=== PATIENT | female | born 1950 | race Caucasian/White ===

== ENCOUNTER 2023-08-24 11:14 | Outpatient (AMB) | payer MEDICARE, SELFPAY ==
--- NOTE | 2023-08-24 11:18 | MHC.PC.OV ---
Vital Signs 08/24/23 11:19 Height 5 ft 1.61 in Weight 133 lb 0.8 oz BMI 24.6 BP 136/72 Blood Pressure Location Lt brachial Position Sitting Pulse 68 Pulse Source Pulse Oximeter Pulse Oximetry (%) 96 Oxygen Delivery Method Room Air Intake Visit Reasons: [employer], blood tests, including sugar Intake Note: Patient is a new patient here to establish care Waiter/Waitress Captain Required: No Allergies No Known Allergies Allergy (Verified 08/24/23 12:11) Medication List - Last Reconciled 08/24/23 by Kvng Hampton MD No Known Home Meds Tobacco use date assessed: 08/24/23 Fall risk assessment: No Falls in past year Last assessed Fall Risk: 08/24/23 Dental Screening Dental Screen Date: 08/24/23 Did you have a dental visit in the last 12 months?: Yes Did you have a dental problem in the last 6 months where you did not have access to dental care?: No Was dental information given to patient?: Patient has dentist HPI [employer], blood tests, including sugar HPI Details Patient comes in today to establish care - is a new patient to the practice Her previous PCP was Dr. Chacho Mason Patient states that she feels okay but admits that she has not seen a doctor in at least 2 to 3 years now She denies any headaches or dizziness Denies any chest pains, no SOB No nausea/vomiting, no abdominal pain No change in bowel habits noted She denies any acute urinary symptoms Admits that it has been a while since she had her mammogram and bone density done - last mammogram on record was back in 2015 There is no record of a bone density in her file here at [facility] Her pap smear and gynecology exam were also both done back in 2016 Patient states that she has never had a screening colonoscopy done (by choice) but recalls getting some alternative form of testing done - thinks it may be a Cologuard but she is not sure [facility] Medical History (Updated 08/28/23 @ 02:07 by Kvng Hampton MD) Depression Smoker Pure hypercholesterolemia Surgical History (Updated 08/28/23 @ 02:04 by Kvng Hampton MD) No pertinent past surgical history Family History (Updated 08/28/23 @ 02:04 by Kvng Hampton MD) Other Family history non-contributory Social History (Updated 08/28/23 @ 02:05 by Kvng Hampton MD) Housing: Condominium Patient Tobacco Use Status: Current everyday Tobacco user Cigarette Packs Per Day: 1 service: No Current occupational status: retired Cognitive needs: No Hearing needs: No Vision needs: No Questionnaire PHQ-9 Over the last 2 weeks, how often have you been bothered by any of the following problems? 1. Little interest or pleasure in doing things: not at all 2. Feeling down, depressed, or hopeless: not at all 3. Trouble falling or staying asleep, or sleeping too much: not at all 4. Feeling tired or having little energy: not at all 5. Poor appetite or overeating: not at all 6. Feeling bad about yourself - or that you are a failure or have let yourself or your family down: not at all 7. Trouble concentrating on things, such as reading the newspaper or watching television: not at all 8. Moving or speaking so slowly that other people could have noticed. Or the opposite - being so fidgety or restless that you have been moving around a lot more than usual: not at all 9. Thoughts that you would be better off or of hurting yourself in some way: not at all Total score: 0 Depression Screening Interpretation: Negative Depression Screening Done: Yes 48416 - PHQ-9 Billing: Yes Source: Developed by Drs. Errol Spicer, Manuela Dunlap, Barry Urbina and colleagues, with an educational mick from [employer]. Thrive Questionnaire Date Thrive assessed: 08/24/23 I am a: Patient What is your living situation today?: I have a steady place to live Within the past 12 months, did the food you bought not last and you didn't have the money to get more?: Never true Within the past 12 months, did you worry whether your food would run out before you got money to buy more?: Never true Do you have trouble paying for medicines?: No Do you have trouble getting transportation to medical appointments?: No Do you have trouble paying your heating and electricity bill?: No Do you have trouble taking care of your child, family member or friend?: No Do you have trouble with day-to-day activities such as bathing, preparing meals, shopping, managing finances, etc.?: No Are you currently unemployed and looking for a job?: No Are you interested in more education?: No Please select the resources that you would like help with: None Currently or been in a relationship where the following occur: no concerns reported THRIVE Score: 0 AUDIT C Alcohol Use Questionnaire (AUDIT-C) 1. How often do you have a drink containing alcohol?: 2-4 times a month 2. How many drinks containing alcohol do you have on a typical day when you are drinking?: 1 or 2 3. How often do you have six or more drinks on one occasion?: Never Total Score: 2 Score Reviewed/Action Taken: Yes JORGE-7 AMB Questionnaire JORGE-7 Date JORGE - 7 assessed: 08/24/23 Feeling nervous, anxious, or on edge: 0 = Not at all Not being able to stop or control worryin = Not at all Worrying too much about different things: 0 = Not at all Trouble relaxin = Not at all Being so restless that it is hard to sit still: 0 = Not at all Becoming easily annoyed or irritable: 0 = Not at all Feeling afraid as if something awful might happen: 0 = Not at all Total JORGE-7 score (0-4 normal; 5-9 mild; 10-14 moderate; 15-21 severe): 0 Source: Developed by Drs. Errol Spicer, Manuela Dunlap, Barry Urbina and colleagues, with an educational mick from [employer]. JORGE-7 Assessment Billing JORGE-7 Assessment Tool: JORGE-7 Assessment 98016 Review of Systems Const Denies chills, Denies fatigue, Denies fever(s), Denies headache(s) and Denies malaise Eyes Denies blurry vision, Denies change in vision, Denies irritation and Denies itchy eyes ENT Denies dysphagia, Denies dizziness, Denies otalgia, Denies headache(s), Denies nasal congestion, Denies neck pain, Denies odynophagia, Denies sinus pain and Denies sore throat Card Denies chest pain, Denies rapid heart rate, Denies irregular heart rhythm, Denies palpitations and Denies dyspnea Resp Denies chest congestion, Denies cough, Denies dyspnea and Denies wheezing GI Denies abdominal pain, Denies bloating, Denies constipation, Denies dysphagia, Denies heartburn, Denies diarrhea, Denies nausea, Denies odynophagia and Denies vomiting Denies hematuria, Denies urinary frequency, Denies dysuria, Denies urinary incontinence and Denies urinary urgency Musc Denies back pain, Denies arthralgias, Denies joint swelling, Denies muscle weakness and Denies neck pain Skin/Breast Denies breast pain, Denies breast mass, Denies change in pigmentation, Denies lesions, Denies rash and Denies unusual bruising Neuro Denies dizziness, Denies headache(s) and Denies paresthesias Psych Denies anxiety and Denies depression Endo Denies fatigue and Denies palpitations Warren/Lymph Denies easy bruising Aller/Immun Denies itchy eyes and Denies wheezing Physical exam (Primary Care) Vital Signs: Last Vital Signs Pulse 68 08/24/23 11:19 BP 136/72 08/24/23 11:19 Pulse Ox 96 08/24/23 11:19 Oxygen Delivery Method Room Air 08/24/23 11:19 BMI result Body Mass Index 24.6 Tobacco/Smoking Status: Tobacco use Status Tobacco use date assessed 08/24/23 08/24/23 11:20 Patient Tobacco Use Status Current everyday Tobacco 08/24/23 11:50 Depression Screening Interpretation: Negative Thrive Assessment: Date of Thrive Assessment Date Thrive assessed 08/24/23 08/24/23 11:20 Currently or been in a relationship where the following occur: no concerns reported Const General: no acute distress, alert and awake Orientation/consciousness: patient oriented x3 HENMT Head: Yes normocephalic and Yes atraumatic Ears: external ears normal, TM's normal bilaterally and EAC's normal General nose exam: No nasal discharge present Face and sinus: Yes normal facial exam and Yes sinuses nontender Teeth and gingiva: dentition normal Throat: Yes posterior oropharynx normal and Yes tonsils normal (no TP congestion) Eyes Eyelids: Yes eyelids normal Conjunctivae: conjunctivae normal Pupils: Equal, round and reactive pupils present EOM: EOMs intact bilaterally Neck Neck: Yes no lymphadenopathy and Yes supple Thyroid: Thyroid normal Resp Auscultation: clear to auscultation bilaterally, no rales and no wheezes Cardio Rate: regular rate Rhythm: regular rhythm Heart sounds: no murmurs GI Palpation (GI): Soft to palpation, nontender and No hepatosplenomegaly present Auscultation: normal bowel sounds General: Yes no CVA tenderness Back/Spine/Pelvis Back: no CVA tenderness Thoracic/Lumbar Spine: thoracic and lumbar spine normal to inspection Skin Lesions: no lesions Rashes: no rashes Neuro General: patient oriented x3, moves all extremities, no focal motor deficits and CN's II-XI intact bilaterally Cranial nerves: Yes Equal, round and reactive pupils present Cognition (Neuro): normal cognition Gait exam (Neuro): Normal gait present Extrem General: Yes no clubbing, cyanosis or edema Assessment and Plan Assessment & Plan (1) Annual physical exam: Code(s): Z00.00 - Encounter for general adult medical examination without abnormal findings Plan: Check labs (2) Pure hypercholesterolemia: Code(s): E78.00 - Pure hypercholesterolemia, unspecified Plan: Patient has a history of high cholesterol in the past although it has been about 10 years or more since she's had her labs done or checked and states that she has never taken or been prescribed Rx for her cholesterol Reinforced low cholesterol diet Will check her fasting lipids and labs TARYN for follow up (3) Smoker: Code(s): F17.200 - Nicotine dependence, unspecified, uncomplicated Plan: Counseled on smoking cessation - patient states that she currently has no plans to quit smoking Have discussed with her that with her smoking history, she should at least consider going for a low dose CT lung scanning for lung cancer screening (4) Breast cancer screening by mammogram: Code(s): Z12.31 - Encounter for screening mammogram for malignant neoplasm of breast Plan: Will send her for a screening mammogram - patient states that it has been years since she's had a screening mammogram Cee (5) Osteoporosis screening: Code(s): Z13.820 - Encounter for screening for osteoporosis Plan: She does not recall ever getting a bone density screening done - will send her for DEXA scan (this will be her index screen) (6) Colon cancer screening: Code(s): Z12.11 - Encounter for screening for malignant neoplasm of colon Plan: She has never had a colonoscopy done (by choice) and continues to decline referral for a colonoscopy Recalls having some alternative screening done but it has been years since She has agreed to get Cologuard testing done - ordered Plan Follow up in 6 months Orders: Orders TSH reflex Free T4 08/24/23 E78.00 - Pure hypercholesterolemia, unspecified Vitamin D 25-OH Total 08/24/23 E55.9 - Vitamin D deficiency, unspecified Vitamin B12 and Folate 08/24/23 E53.8 - Deficiency of other specified B group vitamins MM tomosynthesis screening BI 08/24/23 Z12.31 - Encounter for screening mammogram for malignant neoplasm of breast Hemoglobin A1c 08/24/23 E11.9 - Type 2 diabetes mellitus without complications Complete Blood Count Auto Diff 08/24/23 D64.9 - Anemia, unspecified Comprehensive Clio. Panel Fast 08/24/23 E78.00 - Pure hypercholesterolemia, unspecified Lipid Panel 08/24/23 E78.00 - Pure hypercholesterolemia, unspecified UA CC w/rflx Micro + Cult 08/24/23 R30.0 - Dysuria XR DEXA axial skeleton 08/24/23 Z78.0 - Asymptomatic menopausal state Referrals Cologuard Test Z12.11 - Encounter for screening for malignant neoplasm of colon, Z12.12 - Encounter for screening for malignant neoplasm of rectum Review Declined Pap Smear: 08/24/23 Patient declined Colonoscopy: 08/24/23 Coding Level of Care Code New Pt Prev Care >65yr (64187) Diagnoses Annual physical exam Z00.00 Pure hypercholesterolemia E78.00 Smoker F17.200 Breast cancer screening by mammogram Z12.31 Osteoporosis screening Z13.820 Colon cancer screening Z12.11 Additional Codes JORGE-7 Assessment Billing - JORGE-7 Assessment Tool: JORGE-7 Assessment 08440 ([id number])
[2023-08-24 11:19] VITALS: BP 136/72; PULSE 68; O2SAT 96; BMI 24.6
== END 2023-08-24 12:34 | disposition home or self-care (01) ==
PROVIDERS: PCP Internal Medicine; Visit Provider Physician Assistant
DX: Z00.00 Encounter for general adult medical examination without abnormal findings (principal); E78.00 Pure hypercholesterolemia, unspecified; F17.200 Nicotine dependence, unspecified, uncomplicated; Z12.31 Encounter for screening mammogram for malignant neoplasm of breast; Z13.820 Encounter for screening for osteoporosis; Z12.11 Encounter for screening for malignant neoplasm of colon
CPT/HCPCS: 99387

== ENCOUNTER 2023-09-05 09:55 | Outpatient (REF) | payer MEDICARE, SELFPAY ==
[2023-09-05 10:10] LABS: MANUAL DIFF FLAG NO
[2023-09-05 11:06] LABS: Appearance Urine Cloudy; Color Urine Yellow; Glucose Urine UA Negative (Negative); Leukocyte Esterase Urine Moderate (2+) (Negative); Nitrite Urine Negative (Negative); UMIC TRIGGER UACC YES; Urine Blood Negative (Negative); Urine Ketones Negative (Negative); Urine Protein Negative (Neg-Trace)
[2023-09-05 11:13] LABS: Basophils Absolute Auto 0.1 X10*3/uL (0.0-0.2); Eosinophils Absolute Auto 0.7 X10*3/uL (0.0-0.4); Eosinophils Percent Auto 6.2 % (0-4); Hematocrit 46.4 % (37.0-47.0); Hemoglobin 15.7 g/dl (12.0-16.0); Imm Gran Abs Auto 0.08 X10*3/uL (0.00-0.03); Imm Gran Pct Auto 0.7 % (0.0-0.4); Lymphocytes Absolute Auto 2.8 X10*3/uL (1.2-4.9); Lymphocytes Percent Auto 25.9 % (20-40); Mean Corpuscular HGB Conc 33.8 g/dl (31.0-35.0); Mean Corpuscular Hemoglobin 30.5 pg (27.0-33.0); Mean Corpuscular Volume 90.3 fL (80.0-98.0); Mean Platelet Volume 9.9 fL (9.4-12.3); Monocytes Absolute Auto 0.7 X10*3/uL (0.1-1.2); Monocytes Percent Auto 6.2 % (2-11); Neutrophils Absolute Auto 6.5 x10*3/uL (2.0-8.3); Platelet Count 254 X10*3/uL (160-400); Red Blood Count 5.14 X10*6/uL (4.20-5.50); Red Cell Distribution Width 11.9 % (11.0-16.0); White Blood Count 10.8 X10*3/uL (4.8-10.8)
[2023-09-05 11:28] LABS: Bacteria Urine 2+ (None Seen); Hyaline Casts Urine 0-2 /LPF (0-2); RBC Urine 0-2 /HPF (0-2); Squamous Epithelial Cell Urine >20 /HPF (0-2); UACC Culture Trigger YES; WBC Urine 21-50 /HPF (0-5)
[2023-09-05 11:58] LABS: Alanine Aminotransferase 17 U/L (0-31); Albumin Level 4.4 g/dL (3.5-5.0); Alkaline Phosphatase 131 U/L (39-117); Anion Gap 15 (12-20); Aspartate Amino Transferase 15 U/L (5-31); Bilirubin Total 0.5 mg/dL (0.0-1.0); Blood Urea Nitrogen 21 mg/dL (9-16); Calcium 10.2 mg/dL (8.4-10.2); Carbon Dioxide 24 mmol/L (22-29); Chloride 108 mmol/L (96-108); Cholesterol 219 mg/dL (<200); Estimated Glomerular Filt Rate > 60; Glucose Fasting 89 mg/dL (60-99); HDL Cholesterol 39 mg/dL (>40); LDL Cholesterol Calculated 146 mg/dL (<100); Potassium 4.9 mmol/L (3.3-5.1); Sodium 142 mmol/L (135-145); TSH reflex Free T4 0.86 uIU/mL (0.32-4.0); Triglycerides 173 mg/dL (<150); Vitamin D 25-OH Total 45.2 ng/mL (>30)
[2023-09-05 12:00] LABS: Estimated Average Glucose 100 mg/dL; Hemoglobin A1c % 5.1 % (<6.0)
[2023-09-05 12:17] LABS: Vitamin B12 511 pg/mL (200-900)
== END 2023-09-05 09:56 | disposition home or self-care (01) ==
LOC: HO.LAB 09:55
PROVIDERS: PCP Internal Medicine; Visit Provider Internal Medicine
DX: E78.00 Pure hypercholesterolemia, unspecified (principal); R30.0 Dysuria; E55.9 Vitamin D deficiency, unspecified; E53.8 Deficiency of other specified B group vitamins; E11.9 Type 2 diabetes mellitus without complications; D64.9 Anemia, unspecified
CPT/HCPCS: 36415; 80053; 80061; 81001; 81003; 82306; 82607; 82746; 83036; 84443; 85025; 87086

== ENCOUNTER 2023-09-27 09:54 | Outpatient (REF) | payer MEDICARE, SELFPAY ==
--- NOTE | ~2023-09-27 | MM_ITS ---
EXAMINATION: BONE DENSITOMETRY CLINICAL INDICATION: Menopause. COMPARISON: This is the patient's baseline examination. TECHNIQUE: Using a [employer] DXA System (software version: 13.1) manufactured by [employer], dual-energy x-ray absorptiometry was performed of the lumbar spine and left hip. The images are of good technical quality. Summary results are attached. FINDINGS: LEFT FEMUR, NECK: BMD 0.602 g/cm2, Z-score -1.2, T-score -3.1, osteoporosis. LEFT FEMUR, TOTAL: BMD 0.615 g/cm2, Z-score -1.4, T-score -3.1, osteoporosis. AP SPINE L1-L4: BMD 0.855 g/cm2, Z-score -0.8, T-score -2.7, osteoporosis. IDENTIFIED RISK FACTORS: Menopause, height loss, tobacco use (current smoker). HISTORY OF FRACTURE: None listed. MEDICATIONS: Multivitamin, vitamin D. MM/XR DEXA axial skeleton IMPRESSION: 1. DIAGNOSIS: Osteoporosis based on the lowest T-score value of -3.1 in the femur neck and total femur applying World Health Organization criteria. 2. 10-YEAR FRACTURE RISK PREDICTION, FRAX: According to the guidelines, FRAX calculation should only be performed on patients in the osteopenia bone density category. Therefore, FRAX was not performed on this patient. 3. Treatment Recommendations: NOF guidelines recommend consideration for treatment in postmenopausal women and men age 50 and older presenting with the following: -A hip or vertebral (clinical or morphometric) fracture. -T-score less than or equal to -2.5 at the femoral neck or spine after appropriate evaluation to exclude secondary causes. -Low bone mass at the hip or spine and a 10-year fracture probability by FRAX of greater than or equal to 3% for hip fracture or greater than or equal to 20% for major osteoporotic fracture based on the [place] adapted WHO algorithm. 4. Other Recommendations: All treatment decisions require clinical judgment and consideration of individual patient factors, including patient preferences, comorbidities, previous drug use, risk factors not captured in the FRAX model (e.g. frailty, falls, vitamin D deficiency, increased bone turnover, interval significant decline in bone density) and possible under or overestimation of fracture risk by FRAX. Additional medical evaluation for secondary cause of low bone mineral density may be appropriate. FUTURE SCAN RECOMMENDATION: People with diagnosed cases of osteoporosis or at high risk for fracture should have regular bone mineral density tests. For patients eligible for Medicare, routine testing is allowed once every 2 years. The testing frequency can be increased to one year for patients who have rapidly progressing disease, those who are receiving or discontinuing medical therapy to restore bone mass, or have additional risk factors.
--- NOTE | ~2023-09-27 | MM_ITS ---
EXAMINATION: MM SCREENING DIGITAL BREAST TOMOSYNTHESIS, BILATERAL CLINICAL INFORMATION: Screening. Asymptomatic. COMPARISON: Mammography: There are no prior mammograms for comparison. TECHNIQUE: Digital breast tomosynthesis is performed in both the craniocaudal and mediolateral oblique views along with computer-aided detection (CAD). Synthesized 2D images are generated from the tomosynthesis. FINDINGS: There are scattered areas of fibroglandular density (ACR BI-RADS breast composition Category b). There are grouped calcifications at the lower inner quadrant of the right breast at a middle depth. Some of these may be vascular. Additional mammographic imaging with magnification is advised. In the left breast, there are no significant masses, abnormal calcifications, or other abnormalities. MM/MM tomosynthesis screening BI IMPRESSION: Right breast calcifications warrant additional mammographic imaging with magnification. No mammographic signs of malignancy left breast. ASSESSMENT: BI-RADS BI-RADS 0 - Incomplete: Needs additional Imaging. RECOMMENDATION: Additional views of the right breast. Radiology department staff will contact the patient for additional imaging. Additional Imaging required This examination should not preclude the clinical evaluation of a suspicious palpable abnormality. This patient's information was entered into a reminder system with a target due date for their next mammogram.
== END 2023-09-27 09:55 | disposition home or self-care (01) ==
LOC: HO.MAMMO 09:54
PROVIDERS: PCP Internal Medicine; Visit Provider Internal Medicine
DX: Z12.31 Encounter for screening mammogram for malignant neoplasm of breast (principal); Z13.820 Encounter for screening for osteoporosis; Z78.0 Asymptomatic menopausal state
CPT/HCPCS: 77063; 77067; 77080

== ENCOUNTER → 2023-09-27 10:30 | Outpatient (BNV) | payer MEDICARE, SELFPAY | PROVIDERS: PCP Internal Medicine; Visit Provider Radiology Diagnostic Radiology | DX: Z12.31 Encounter for screening mammogram for malignant neoplasm of breast (principal) | CPT/HCPCS: 77063; 77067 ==

== ENCOUNTER 2023-12-05 14:14 | Outpatient (REF) | payer MEDICARE, SELFPAY ==
--- NOTE | ~2023-12-05 | MM_ITS ---
EXAMINATION: MM DIAGNOSTIC DIGITAL MAMMOGRAPHY, RIGHT CLINICAL INFORMATION: Diagnostic for calcifications lower inner quadrant right breast mid to anterior one third seen on screening exam. Patient states last mammogram was approximately 2010. COMPARISON: Mammography: As above, no recent priors available. TECHNIQUE: Digital mammography is performed in the following views: 2-D spot magnification right CC and LM views. FINDINGS: There are scattered areas of fibroglandular density (ACR BI-RADS breast composition Category b). In the lower inner quadrant of the right breast, mid to anterior one third, there is a group of somewhat pleomorphic calcifications, with both linear, punctate, and branching forms, suspicious in morphology. These do not definitively represent vascular calcifications and may lie within a ductal distribution. Stereotactic biopsy recommended. MM/MM added views RT IMPRESSION: -Suspicious calcifications in the lower inner quadrant right breast as described, for which stereotactic guided biopsy is recommended for further characterization. -Findings and recommendations discussed with the patient in detail, who appears to understand. ASSESSMENT: BI-RADS BI-RADS 4 - Suspicious finding RECOMMENDATION: Biopsy recommended
== END 2023-12-05 14:15 | disposition home or self-care (01) ==
LOC: HO.MAMMO 14:14
PROVIDERS: Visit Provider Internal Medicine
DX: R92.1 Mammographic calcification found on diagnostic imaging of breast (principal)
CPT/HCPCS: 77065

== ENCOUNTER → 2023-12-05 15:00 | Outpatient (BNV) | payer MEDICARE, SELFPAY | PROVIDERS: Visit Provider Radiology Diagnostic Radiology | DX: R92.1 Mammographic calcification found on diagnostic imaging of breast (principal) | CPT/HCPCS: 77065; G0279 ==

== ENCOUNTER 2023-12-06 14:07 | Outpatient (AMB) | payer MEDICARE, SELFPAY ==
--- NOTE | 2023-12-06 14:27 | MHC.OFFVIS ---
Vital Signs 12/06/23 14:28 Height 5 ft 2 in Weight 132 lb 4.438 oz BMI 24.2 BP 138/86 Blood Pressure Location Rt brachial Position Sitting Pulse 76 Pulse Source Pulse Oximeter Pulse Oximetry (%) 96 Oxygen Delivery Method Room Air Intake Visit Reasons: [place] s/p scrn. +cologuard. Intake Note: Kelsey presents in office today for a scheduled colo s/p consult. CC: Pt had recently received a + Cologuard result. Pt has previous hx of hemorrhoids and believes that with recent GI related issues and hemorrhoids, that it could possibly have caused a false positive. Pt denies any new concerns or sx at this time. Pt has no prior hx of colo. Director Labor Standards Required: No Allergies nickel Allergy (Mild, Verified 12/06/23 14:35) Rash HPI HPI [place] s/p scrn. +cologuard.: Details: 73 year old? female here today for pre colonoscopy screening.? Patient was sent to us by her PCP.? This is her first colonoscopy screening.? Patient had Cologuard in August and was positive. Patient denies any melena, hematochezia, unintentional weight loss or ribbon like stools. Patient does report that she has hemorrhoids. Just before patient had send a Cologuard she had GI virus and had diarrhea. However patient states that when she sent the stool it was firm. Patient denies any gastrointestinal symptoms in the past or at present.? Denies any personal or family history of gastrointestinal disease, colon polyps, or CRC.? Denies history of difficulty with sedation or anesthesia in the past.? Negative for history of sleep apnea.? Denies any history of cardiac, renal, pulmonary, or hepatic disease.?? No history of infectious? diseases like hepatitis A, B, C, HIV or tuberculosis.? Patient is not on any anticoagulation [facility] Medical History (Updated 12/06/23 @ 15:36 by German Richards MD) Breast calcification, right Depression Smoker Pure hypercholesterolemia Surgical History No pertinent past surgical history Family History Other Family history non-contributory Social History Housing: Condominium Patient Tobacco Use Status: Current everyday Tobacco user Cigarette Packs Per Day: 1 service: No Current occupational status: retired Cognitive needs: No Hearing needs: No Vision needs: No Review of Systems Const Denies weight gain and Denies weight loss ENT Reports no additional complaints, Denies dysphagia and Denies odynophagia Card Reports no additional complaints Resp Reports no additional complaints GI Denies abdominal pain, Denies belching, Denies melena, Denies bloating, Denies change in bowel habits, Denies dysphagia, Denies excessive flatus, Denies dyspepsia, Denies heartburn, Denies diarrhea, Denies loose stools, Denies nausea, Denies odynophagia and Denies vomiting Musc Reports no additional complaints Neuro Reports no additional complaints Psych Reports no additional complaints Endo Reports no additional complaints Physical Exam Vital Signs: Last Vital Signs Pulse 76 12/06/23 14:28 BP 138/86 12/06/23 14:28 Pulse Ox 96 12/06/23 14:28 Oxygen Delivery Method Room Air 12/06/23 14:28 BMI result Body Mass Index 24.2 Const General: healthy appearing, no acute distress and well developed Nutritional Appearance: well nourished Orientation/consciousness: patient oriented x3 Resp Effort & Inspection: normal respiratory effort, able to speak in complete sentences, no tracheal deviation and symmetric chest movement Auscultation: clear to auscultation bilaterally Cardio Rate: regular rate GI Inspection: Yes normal to inspection and No distended Palpation (GI): Soft to palpation, not firm, nontender and No hepatosplenomegaly present Auscultation: normal bowel sounds General: Yes no CVA tenderness Back/Spine/Pelvis Back: no CVA tenderness Skin General skin exam: elasticity normal, turgor normal and dry skin Neuro General: patient oriented x3 Psych Appearance: grossly normal Mental Status: mental status grossly normal Assessment & Plan Assessment & Plan (1) Positive colorectal cancer screening using Cologuard test: Code(s): R19.5 - Other fecal abnormalities Category: Medical Plan Patient denies any GI, cardiac or respiratory symptoms.? Positive Cologuard in May Denies any issues with anesthesia in the past.? Denies any history of sleep apnea.? No history infectious diseases in the past or present.? Not on any anticoagulation therapy.? No family or personal history of colon cancer or polyps.? Patient denies melena, hematochezia, unintentional weight loss or ribbon like stools.? Discussed at length the pre-procedure,? prep, diet & medications as well as what to expect prior, during and after the procedure.?? Stressed the importance of good bowel prep.? Recommended the use of Vaseline or Calmoseptine OTC & baby wipes with bowel movements to promote comfort.? ?Patient verbalizes understanding and agrees to plan of care.? She was given the opportunity to ask questions and all questions answered.? We will see her after the procedure.? Medications: New bisacodyl (Dulcolax (bisacodyl)) take 4 tabs at noon the day before your colonoscopy 20 mg (4 x 5 mg) PO ONCE 4 tabs 0RF 1 day Z12.11 - Encounter for screening for malignant neoplasm of colon polyethylene glycol 3350 (Miralax) As directed by gastroenterology department at [facility] 238 grams PO ONCE 238 grams 0RF Z12.11 - Encounter for screening for malignant neoplasm of colon Coding Level of Care Code New Pt Level 3 (44402) Diagnoses Positive colorectal cancer screening using Cologuard test R19.5 Time Spent (min) 40 Comment 30 minutes spent with patient and additional 10 minutes spent reviewing her records
[2023-12-06 14:28] VITALS: BP 138/86; PULSE 76; O2SAT 96; BMI 24.2
== END 2023-12-06 15:14 | disposition home or self-care (01) ==
PROVIDERS: PCP Internal Medicine; Visit Provider Nurse Practitioner Family
DX: R19.5 Other fecal abnormalities (principal)
CPT/HCPCS: 99203

== ENCOUNTER → 2023-12-06 14:07 | Outpatient (BNVA) | payer MEDICARE, SELFPAY | PROVIDERS: PCP Internal Medicine; Visit Provider Nurse Practitioner Family | DX: Z01.818 Encounter for other preprocedural examination (principal); R19.5 Other fecal abnormalities; Z71.2 Person consulting for explanation of examination or test findings | CPT/HCPCS: 99202 ==

== ENCOUNTER 2023-12-07 13:25 | Outpatient (AMB) | payer MEDICARE, SELFPAY ==
--- NOTE | 2023-12-07 13:28 | MHC.OFFVIS ---
Vital Signs 12/07/23 13:29 Height 5 ft 2 in Weight 132 lb BMI 24.1 Intake Visit Reasons: Stereo Bx RT breast LIQ calcs Intake Note: This patient presents for Stereo Bx for right breast LIQ calcs. Pt c/o; reports no breast complaints. 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 She had undergone screening mammography last month and this showed suspicious calcification in the lower inner quadrant of the right breast. A stereotactic biopsy has been recommended She says she has not felt any lump on the right breast. Her menarche was at age of 13. Her 1st was at age of 32. She has 3 pregnancies. She had menopause in her early 50s. He denies any family history of breast cancer. She admits to being heavy smoker. [facility] Medical History Breast calcification, right Depression Smoker Pure hypercholesterolemia Surgical History No pertinent past surgical history Family History Other Family history non-contributory Social History Housing: Condominium Patient Tobacco Use Status: Current everyday Tobacco user Cigarette Packs Per Day: 1 service: No Current occupational status: retired Cognitive needs: No Hearing needs: No Vision needs: No Female Reproductive History Menstrual Total pregnancies: 1 Review of Systems Const Denies chills and Denies fever(s) Card Denies chest pain, Denies dyspnea and Denies dyspnea on exertion Resp Denies cough, Denies dyspnea and Denies dyspnea on exertion GI Denies hematochezia and Denies change in bowel habits Denies hematuria Musc Denies back pain and Denies limited range of motion Neuro Denies focal weakness and Denies convulsions Psych Denies depression and Denies mood swings Physical Exam Vital Signs: BMI result Body Mass Index 24.1 Const General: comfortable and no acute distress Orientation/consciousness: patient oriented x3 Neck Neck: Yes no lymphadenopathy Chest Other: No palpable breast masses, no nipple or skin changes, no axillary lymphadenopathy Resp Auscultation: clear to auscultation bilaterally Cardio Rhythm: regular rhythm GI Palpation (GI): Soft to palpation, nontender and no guarding Neuro General: patient oriented x3 Assessment & Plan Assessment & Plan (1) Breast calcification, right: Code(s): R92.1 - Mammographic calcification found on diagnostic imaging of breast Category: Medical Plan: She has a suspicious calcifications seen on her screening mammogram on the right breast. She was recommended to undergo stereotactic biopsy. I explained to her the technique of this procedure I will see her in the office to discuss the path report thereafter. She understands the plan well and is comfortable with this. Orders: Orders MM stereotactic biopsy RT 12/06/23 R92.1 - Mammographic calcification found on diagnostic imaging of breast Coding Level of Care Code New Pt Level 3 (47055) Diagnoses Breast calcification, right R92.1
[2023-12-07 13:29] VITALS: BMI 24.1
== END 2023-12-07 13:59 | disposition home or self-care (01) ==
PROVIDERS: PCP Internal Medicine; Visit Provider Surgery
DX: R92.1 Mammographic calcification found on diagnostic imaging of breast (principal)
CPT/HCPCS: 99203

== ENCOUNTER → 2023-12-07 13:25 | Outpatient (BNVA) | payer MEDICARE, SELFPAY | PROVIDERS: PCP Internal Medicine; Visit Provider Surgery | DX: R92.1 Mammographic calcification found on diagnostic imaging of breast (principal) | CPT/HCPCS: 99202 ==

== ENCOUNTER 2023-12-11 07:56 | Outpatient (REF) | payer MEDICARE, SELFPAY ==
--- NOTE | ~2023-12-11 | MM_ITS ---
EXAMINATION: STEREOTACTIC TOMOSYNTHESIS-GUIDED VACUUM-ASSISTED BREAST BIOPSY, RIGHT CLINICAL INFORMATION: Suspicious calcifications right breast lower inner quadrant mid to anterior one third, recommended for stereotactic biopsy. COMPARISON: 12/05/2023, 04/28/2023. TECHNIQUE/PROCEDURE: Informed consent was obtained from the patient after discussion of the benefits, risks, and alternatives to biopsy today. Patient appeared to understand. Gave opportunity for questions. Patient signed consent form. Upon initial district captain imaging of the calcifications in the right breast, it was noted the calcifications conformed to associated vessels, demonstrated tram tracking not previously seen, and are consistent with vascular calcifications. Because of this discovery, the biopsy was canceled. Instead, we will follow these calcifications in 6 months time with magnification views, to assure normal progression of vascular calcifications. MM/MM stereotactic biopsy RT IMPRESSION: 1. Stereotactic biopsy right breast canceled due to district captain imaging evidence of calcifications being consistent with vascular origin. Discussion of findings was held with the patient. We will instead follow these calcifications in 6 months time with right breast diagnostic magnification views. BI-RADS 3: Probably benign.
== END 2023-12-11 07:57 | disposition home or self-care (01) ==
LOC: HO.MAMMO 07:56
PROVIDERS: PCP Internal Medicine; Visit Provider Surgery
DX: R92.1 Mammographic calcification found on diagnostic imaging of breast (principal); Z53.8 Procedure and treatment not carried out for other reasons
CPT/HCPCS: 19081

== ENCOUNTER → 2023-12-11 08:00 | Outpatient (BNV) | payer MEDICARE, SELFPAY | PROVIDERS: PCP Internal Medicine; Visit Provider Radiology Diagnostic Radiology | DX: R92.1 Mammographic calcification found on diagnostic imaging of breast (principal) | CPT/HCPCS: 19081 ==

== ENCOUNTER 2024-02-29 09:50 | Outpatient (AMB) | payer MEDICARE, SELFPAY ==
[2024-02-29 09:52] VITALS: BP 118/68; PULSE 78; O2SAT 97; BMI 23.8
--- NOTE | 2024-02-29 09:52 | MHC.PC.OV ---
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 Accompanied by: Self / Same As Patient Allergies nickel Allergy (Mild, Verified 02/29/24 10:31) Rash Medication List - Last Reconciled 02/29/24 by Kvng Hampton MD bisacodyl (Dulcolax (bisacodyl)) 20 mg (4 x 5 mg) PO ONCE 1 day polyethylene glycol 3350 (Miralax) 238 grams PO ONCE Tobacco use date assessed: 02/29/24 Fall risk assessment: 1 Fall in past year Last assessed Fall Risk: 02/29/24 Dental Screening Dental Screen Date: 02/29/24 Did you have a dental visit in the last 12 months?: Yes Did you have a dental problem in the last 6 months where you did not have access to dental care?: No Was dental information given to patient?: Patient has dentist HPI 6 Month F/U HPI Details Patient comes in today for her follow up visit States that she feels okay She denies any headaches or dizziness Denies any chest pains, no increased SOB No nausea/vomiting, no abdominal pain No change in bowel habits noted She was seen by GI recently for her positive Cologuard test and is now scheduled for her colonoscopy in May 2024 although she is considering having that rescheduled to spring as she does not want to risk having to come out in the winter when there is a snow storm She adds that she had some injury to her left lower leg about 25 years ago but she never had her leg checked out after her injury States that since her injury, she'd had a prominent hard/firm tendon-like lesion sticking out on her left lower leg on the side Relates that she has mentioned that to her doctor at the time but was just told to watch it and call again if it starts to bother her States that the lesion does not hurt and it does not seem to be affecting her leg or ankle or her mobility - she appears to have full ROM of her left ankle and states that she has no leg pain or ankle pain when she is walking or moving about She would like to know how her labs and bone density done a few months ago came out [facility] Medical History (Updated 02/29/24 @ 11:12 by Kvng Hampton MD) Mixed hyperlipidemia Osteoporosis Breast calcification, right Depression Smoker Pure hypercholesterolemia Surgical History No pertinent past surgical history Family History Other Family history non-contributory Social [facility] Patient Tobacco Use Status: Current everyday Tobacco user Cigarette Packs Per Day: 1 e-Cigarette/Vaping Use: Never Used service: No Current occupational status: retired Cognitive needs: No Hearing needs: No Vision needs: No Questionnaire PHQ-9 Over the last 2 weeks, how often have you been bothered by any of the following problems? 1. Little interest or pleasure in doing things: not at all 2. Feeling down, depressed, or hopeless: not at all 3. Trouble falling or staying asleep, or sleeping too much: not at all 4. Feeling tired or having little energy: not at all 5. Poor appetite or overeating: not at all 6. Feeling bad about yourself - or that you are a failure or have let yourself or your family down: not at all 7. Trouble concentrating on things, such as reading the newspaper or watching television: not at all 8. Moving or speaking so slowly that other people could have noticed. Or the opposite - being so fidgety or restless that you have been moving around a lot more than usual: not at all 9. Thoughts that you would be better off or of hurting yourself in some way: not at all Total score: 0 Depression Screening Interpretation: Negative Depression Screening Done: Yes 03616 - PHQ-9 Billing: Yes Source: Developed by Drs. Errol Spicer, Manuela Dunlap, Barry Urbina and colleagues, with an educational mick from [employer]. Thrive Questionnaire Date Thrive assessed: 02/29/24 I am a: Patient What is your living situation today?: I have a steady place to live Within the past 12 months, did the food you bought not last and you didn't have the money to get more?: Never true Within the past 12 months, did you worry whether your food would run out before you got money to buy more?: Never true Do you have trouble paying for medicines?: No Do you have trouble getting transportation to medical appointments?: No Do you have trouble paying your heating and electricity bill?: No Do you have trouble taking care of your child, family member or friend?: No Do you have trouble with day-to-day activities such as bathing, preparing meals, shopping, managing finances, etc.?: No Are you currently unemployed and looking for a job?: No Are you interested in more education?: No Please select the resources that you would like help with: None Currently or been in a relationship where the following occur: No concerns reported THRIVE Score: 0 AUDIT C Alcohol Use Questionnaire (AUDIT-C) 1. How often do you have a drink containing alcohol?: 2-4 times a month 2. How many drinks containing alcohol do you have on a typical day when you are drinking?: 1 or 2 3. How often do you have six or more drinks on one occasion?: Never Total Score: 2 Score Reviewed/Action Taken: Yes JORGE-7 AMB Questionnaire JORGE-7 Date JORGE - 7 assessed: 02/29/24 Feeling nervous, anxious, or on edge: 0 = Not at all Not being able to stop or control worryin = Not at all Worrying too much about different things: 0 = Not at all Trouble relaxin = Not at all Being so restless that it is hard to sit still: 0 = Not at all Becoming easily annoyed or irritable: 0 = Not at all Feeling afraid as if something awful might happen: 0 = Not at all Total JORGE-7 score (0-4 normal; 5-9 mild; 10-14 moderate; 15-21 severe): 0 Source: Developed by Drs. Errol Spicer, Manuela Dunlap, Barry Urbina and colleagues, with an educational mick from [employer]. JORGE-7 Assessment Billing JORGE-7 Assessment Tool: JORGE-7 Assessment 48577 Review of Systems Const Denies chills, Denies fatigue, Denies fever(s) and Denies headache(s) ENT Denies dysphagia, Denies dizziness, Denies otalgia, Denies headache(s), Denies neck pain, Denies odynophagia and Denies sore throat Card Denies chest pain, Denies irregular heart rhythm, Denies palpitations and Denies dyspnea Resp Denies chest congestion, Denies cough and Denies dyspnea GI Denies abdominal pain, Denies constipation, Denies dysphagia, Denies heartburn, Denies diarrhea, Denies nausea, Denies odynophagia and Denies vomiting Denies difficulty voiding, Denies nocturia, Denies dysuria and Denies urinary urgency Musc Denies back pain, Denies arthralgias and Denies neck pain Skin/Breast Denies rash Neuro Denies dizziness and Denies headache(s) Endo Denies fatigue and Denies palpitations Physical exam (Primary Care) Vital Signs: Last Vital Signs Pulse 78 02/29/24 09:52 BP 118/68 02/29/24 09:52 Pulse Ox 97 02/29/24 09:52 Oxygen Delivery Method Room Air 02/29/24 09:52 BMI result Body Mass Index 23.8 Tobacco/Smoking Status: Tobacco use Status Tobacco use date assessed 02/29/24 02/29/24 09:57 Patient Tobacco Use Status Current everyday Tobacco 02/29/24 09:57 e-Cigarette/Vaping Use Never Used 02/29/24 09:57 PHQ-9: PHQ-9 Score PHQ-9: Total score 0 02/29/24 09:57 Depression Screening Interpretation: Negative Thrive Assessment: Date of Thrive Assessment Date Thrive assessed 02/29/24 02/29/24 09:57 Currently or been in a relationship where the following occur: No concerns reported Const General: no acute distress and alert HENMT Ears: TM's normal bilaterally and EAC's normal Throat: Yes posterior oropharynx normal and Yes tonsils normal (no TP congestion) Neck Neck: Yes no lymphadenopathy and Yes supple Thyroid: Thyroid normal Resp Auscultation: clear to auscultation bilaterally, no rales and no wheezes Cardio Rate: regular rate Rhythm: regular rhythm Heart sounds: no murmurs GI Palpation (GI): Soft to palpation and nontender Auscultation: normal bowel sounds General: Yes no CVA tenderness Back/Spine/Pelvis Back: no CVA tenderness Thoracic/Lumbar Spine: No lumbar spinal tenderness Skin Rashes: no rashes Extrem General: Yes no clubbing, cyanosis or edema Office Procedures Flu Questionnaire Does the patient have a severe egg allergy?: No Immunizations Fluarix Triv [id number] (PF) 45 mcg (15 mcg x 3)/0.5 mL IM syringe Performing Provider: Kvng Hampton MD [facility] [place] [facility] Documented (not given) by: CHERYL Cardenas on 02/29/24 09:58 Reason Not Given: Patient Refused Results Reviewed Results Reviewed: Laboratory Tests 09/05/23 09/05/23 10:02 10:08 WBC 10.8 Hgb 15.7 Hct 46.4 Plt Count 254 Sodium 142 Potassium 4.9 Creatinine 0.74 Estimated GFR > 60 Fasting Glucose 89 Hemoglobin A1c % 5.1 Calcium 10.2 AST 15 ALT 17 Triglycerides 173 H Cholesterol 219 H LDL Cholesterol, Calc 146 H HDL Cholesterol 39 L Vitamin B12 511 25-OH Vitamin D Total 45.2 TSH 0.86 Ur Specific Bennet 1.010 Urine Protein Negative Urine Glucose (UA) Negative Urine Blood Negative Urine Nitrite Negative Ur Leukocyte Esterase Moderate (2+) H Coding Level of Care Code Est Pt Level 4 (16927) Diagnoses Mixed hyperlipidemia E78.2 Age-related osteoporosis without current pathological fracture M81.0 Osteoporosis type: age-related Presence of current pathological fracture: without current pathological fracture Injury of left lower extremity, sequela S89.92XS Encounter type: sequela Smoker F17.200 Positive colorectal cancer screening using Cologuard test R19.5 Additional Codes JORGE-7 Assessment Billing - JORGE-7 Assessment Tool: JORGE-7 Assessment 36915 ([id number]) PHQ-9 - 77893 - PHQ-9 Billing: Yes ([id number]) Assessment & Plan Assessment & Plan (1) Mixed hyperlipidemia: Code(s): E78.2 - Mixed hyperlipidemia Category: Medical Plan: Results of her labs done a few months ago reviewed and discussed with patient - she is advised that her cholesterol levels were slightly elevated and higher than recommended on her recent labs She also had high cholesterol levels when they were previously checked back in 2016 Reinforced low cholesterol diet - advised LDL cholesterol goal of at least 130 mg/dl or less if she wishes to avoid having to go on cholesterol-lowering medications Will have her recheck her labs and fasting lipids in 6 months for follow up (2) Osteoporosis: Code(s): M81.0 - Age-related osteoporosis without current pathological fracture Category: Medical Qualifiers: Osteoporosis type: age-related Presence of current pathological fracture: without current pathological fracture Qualified Code(s): M81.0 - Age-related osteoporosis without current pathological fracture Plan: She is advised that her bone density done back in September 2023 revealed (+) osteoporosis, with the lowest T-score value of -3.1 in the femur neck and total femur - this is patient's baseline exam Have recommended that she start taking oral Vitamin D and Calcium supplements daily - Rx for Calcium Citrate + D3 tablets sent to her pharmacy but she is advised that if her insurance will not cover them, she can get these on her own OTC with no Rx needed Will also go ahead and start her on Alendronate 70 mg Q week as instructed - she is advised to call TARYN if she starts experiencing any untoward side effects that she thinks are from her Rx (3) Left leg injury: Comment: (+) prominent tendon on the lateral aspect of the distal left leg - s/p injury to leg years ago Code(s): S89.92XA - Unspecified injury of left lower leg, initial encounter Category: Medical Qualifiers: Encounter type: sequela Qualified Code(s): S89.92XS - Unspecified injury of left lower leg, sequela Plan: She recalls sustaining an injury to her left leg when she was working over 25 years ago but she never did get her injury checked out at the time as it was not really bothering her too much States that she has mentioned this to her doctor at the time but was reportedly advised to just watch it (observation) and call if it starts to bother her States that the lesion does not hurt and it does not seem to be affecting her leg or ankle or her mobility - she appears to have full ROM of her left ankle and states that she has no leg pain or ankle pain when she is walking or moving about As a precaution, will send her for x-rays of the left leg for further evaluation and to assess for any evidence of old injuries and advised that if her x-rays are unremarkable, we do not need to do anything else unless she starts experiencing any symptoms related to this (4) Smoker: Code(s): F17.200 - Nicotine dependence, unspecified, uncomplicated Category: Social Hx Plan: Patient is counseled again on smoking cessation (5) Positive colorectal cancer screening using Cologuard test: Code(s): R19.5 - Other fecal abnormalities Category: Medical Plan: She was seen by GI recently for her positive Cologuard test and is now scheduled for her colonoscopy in May 2024 although she is considering having that rescheduled to sometime in the spring of 2024 as she does not want to risk having to come out in the winter when there is a snow storm She is advised to speak to GI about this Plan To return in 6 months for her next annual physical examination Orders: Orders Complete Blood Count Auto Diff 6 Months D64.9 - Anemia, unspecified, Z00.00 - Encounter for general adult medical examination without abnormal findings Comprehensive [place]. Panel Fast 6 Months E78.00 - Pure hypercholesterolemia, unspecified, Z00.00 - Encounter for general adult medical examination without abnormal findings Vitamin D 25-OH Total 6 Months E55.9 - Vitamin D deficiency, unspecified, Z00.00 - Encounter for general adult medical examination without abnormal findings Influenza [id number] Immunization Today Z23 - Encounter for immunization XR tibia fibula LT 2V Today S89.92XA - Unspecified injury of left lower leg, initial encounter Lipid Panel 6 Months E78.00 - Pure hypercholesterolemia, unspecified, Z00.00 - Encounter for general adult medical examination without abnormal findings TSH reflex Free T4 6 Months E78.00 - Pure hypercholesterolemia, unspecified, Z00.00 - Encounter for general adult medical examination without abnormal findings UA CC w/rflx Micro + Cult 6 Months R30.0 - Dysuria, Z00.00 - Encounter for general adult medical examination without abnormal findings Medications: New alendronate To be taken first thing in the morning on an empty stomach with a full glass of water; patient has to stay upright for at least the next 30 minutes and should not eat or drink anything else for 30 to 60 minutes after taking the medication 70 mg PO QWEEK 3 months 13 tabs 1RF calcium citrate-vitamin D3 250 mg-5 mcg (200 unit) 1 tab PO DAILY 90 days 90 tabs 3RF
== END 2024-02-29 10:40 | disposition home or self-care (01) ==
LOC: HO.HMCH 09:50
PROVIDERS: PCP Internal Medicine; Visit Provider Internal Medicine
DX: E78.2 Mixed hyperlipidemia (principal); M81.0 Age-related osteoporosis without current pathological fracture; S89.92XS Unspecified injury of left lower leg, sequela; F17.200 Nicotine dependence, unspecified, uncomplicated; R19.5 Other fecal abnormalities; Z23 Encounter for immunization

== ENCOUNTER → 2024-02-29 09:50 | Outpatient (BNVA) | payer MEDICARE, SELFPAY | PROVIDERS: PCP Internal Medicine; Visit Provider Internal Medicine | DX: E78.2 Mixed hyperlipidemia (principal); M81.0 Age-related osteoporosis without current pathological fracture; R19.5 Other fecal abnormalities; S89.92XS Unspecified injury of left lower leg, sequela; F17.200 Nicotine dependence, unspecified, uncomplicated; Z71.6 Tobacco abuse counseling | CPT/HCPCS: 90471; 96127; 99212 ==

== ENCOUNTER 2024-08-26 11:40 | Outpatient (REF) | payer MEDICARE, SELFPAY ==
--- NOTE | ~2024-08-26 | MM_ITS ---
EXAMINATION: MM DIAGNOSTIC DIGITAL MAMMOGRAPHY, RIGHT CLINICAL INFORMATION: Patient was called back for right grouped calcifications September 2023 and the stereotactic core needle biopsy is recommended. Patient arrived first irritated core needle biopsy December 11, 2023 was canceled and 6 month follow-up recommended. COMPARISON: Mammography: Pri[facility] on PACS. TECHNIQUE: Digital mammography is performed in craniocaudal and mediolateral oblique views along with computer-aided detection (CAD). FINDINGS: There are scattered areas of fibroglandular density (ACR BI-RADS breast composition Category b). Grouped pleomorphic calcifications in the lower inner quadrant slightly increased from prior. No suspicious masses or other abnormal findings. Results are provided to the patient at time of visit by the technologist. MM/MM diagnostic mammo unilat RT IMPRESSION: Grouped pleomorphic calcifications in the lower inner quadrant slightly increased from prior. Recommend stereotactic core needle biopsy at this time. The findings and recommendations were discussed with the patient the procedure will be scheduled. ASSESSMENT: BI-RADS BI-RADS 4 - Suspicious finding RECOMMENDATION: Biopsy recommended This patient's information was entered into a reminder system with a target due date for their next mammogram. Electronically signed by: Shahida Escudero DO 08/26/2024 01:01 PM EDT
== END 2024-08-26 11:41 | disposition home or self-care (01) ==
LOC: HO.MAMMO 11:40
PROVIDERS: PCP Internal Medicine; Visit Provider Surgery
DX: R92.1 Mammographic calcification found on diagnostic imaging of breast (principal); R92.321 Mammographic fibroglandular density, right breast
CPT/HCPCS: 77062; 77065

== ENCOUNTER → 2024-08-26 12:00 | Outpatient (BNV) | payer MEDICARE, SELFPAY | PROVIDERS: PCP Internal Medicine; Visit Provider Internal Medicine | DX: R92.1 Mammographic calcification found on diagnostic imaging of breast (principal) | CPT/HCPCS: 77065 ==

== ENCOUNTER 2024-08-28 09:58 | Outpatient (REF) | payer MEDICARE, SELFPAY ==
[2024-08-28 11:01] LABS: MANUAL DIFF FLAG NO
[2024-08-28 11:48] LABS: Basophils Absolute Auto 0.1 X10*3/uL (0.0-0.2); Basophils Percent Auto 0.6 % (0-2); Eosinophils Absolute Auto 0.1 X10*3/uL (0.0-0.4); Eosinophils Percent Auto 1.4 % (0-4); Hematocrit 47.1 % (37.0-47.0); Imm Gran Abs Auto 0.06 X10*3/uL (0.00-0.03); Imm Gran Pct Auto 0.6 % (0.0-0.4); Lymphocytes Absolute Auto 2.7 X10*3/uL (1.2-4.9); Lymphocytes Percent Auto 25.7 % (20-40); Mean Corpuscular Hemoglobin 30.1 pg (27.0-33.0); Mean Corpuscular Volume 88.5 fL (80.0-98.0); Mean Platelet Volume 9.7 fL (9.4-12.3); Monocytes Absolute Auto 0.7 X10*3/uL (0.1-1.2); Neutrophils Absolute Auto 6.7 x10*3/uL (2.0-8.3); Neutrophils Percent Auto 64.7 % (45-73); Platelet Count 280 X10*3/uL (160-400); Red Blood Count 5.32 X10*6/uL (4.20-5.50); Red Cell Distribution Width 12.1 % (11.0-16.0); White Blood Count 10.4 X10*3/uL (4.8-10.8)
[2024-08-28 12:07] LABS: Appearance Urine Clear; Color Urine Yellow; Glucose Urine UA Negative (Negative); Leukocyte Esterase Urine Small (1+) (Negative); Nitrite Urine Negative (Negative); PH 5.5 (5.0-9.0); UMIC TRIGGER UACC YES; Urine Blood Negative (Negative); Urine Ketones Negative (Negative); Urine Protein Negative (Neg-Trace)
[2024-08-28 12:35] LABS: Bacteria Urine 2+ (None Seen); Hyaline Casts Urine 0-2 /LPF (0-2); RBC Urine 0-2 /HPF (0-2); UACC Culture Trigger YES; WBC Urine 0-5 /HPF (0-5)
[2024-08-28 12:38] LABS: Alanine Aminotransferase 24 U/L (0-31); Albumin Level 4.6 g/dL (3.5-5.0); Alkaline Phosphatase 77 U/L (39-117); Anion Gap 12 (12-20); Aspartate Amino Transferase 19 U/L (5-31); Bilirubin Total 0.6 mg/dL (0.0-1.0); Blood Urea Nitrogen 18 mg/dL (9-16); Calcium 10.3 mg/dL (8.4-10.2); Carbon Dioxide 23 mmol/L (22-29); Chloride 108 mmol/L (96-108); Cholesterol 247 mg/dL (<200); Estimated Glomerular Filt Rate > 60; Glucose Fasting 95 mg/dL (60-99); HDL Cholesterol 37 mg/dL (>40); LDL Cholesterol Calculated 143 mg/dL (<100); Potassium 3.9 mmol/L (3.3-5.1); Sodium 139 mmol/L (135-145); Total Protein 8.1 g/dL (6.5-8.0); Triglycerides 336 mg/dL (<150)
[2024-08-28 12:43] LABS: Vitamin D 25-OH Total 48.8 ng/mL (>30)
== END 2024-08-28 09:59 | disposition home or self-care (01) ==
LOC: HO.LAB 09:58
PROVIDERS: PCP Internal Medicine; Visit Provider Internal Medicine
DX: E78.2 Mixed hyperlipidemia (principal); M81.0 Age-related osteoporosis without current pathological fracture; S89.92XS Unspecified injury of left lower leg, sequela; R19.5 Other fecal abnormalities; F17.210 Nicotine dependence, cigarettes, uncomplicated; Z00.00 Encounter for general adult medical examination without abnormal findings; D64.9 Anemia, unspecified; E78.00 Pure hypercholesterolemia, unspecified; E55.9 Vitamin D deficiency, unspecified; R30.0 Dysuria
CPT/HCPCS: 36415; 80053; 80061; 81001; 81003; 82306; 84443; 85025; 87086; 96127; 99212

== ENCOUNTER 2024-08-28 09:58 | Outpatient (AMB) | payer MEDICARE, SELFPAY ==
[2024-08-28 10:03] VITALS: BP 116/82; PULSE 90; O2SAT 96; BMI 24.8
--- NOTE | 2024-08-28 10:03 | A.OFFPC_ITS ---
Vital Signs 08/28/24 10:03 Height 5 ft 2 in Weight 135 lb 6 oz BMI 24.8 BP 116/82 Blood Pressure Location Lt brachial Position Sitting Pulse 90 Pulse Source Pulse Oximeter Pulse Oximetry (%) 96 Oxygen Delivery Method Room Air Intake Visit Reasons: 6 month f/u Radiological Equipment Specialist Required: No Accompanied by: Self / Same As Patient Allergies nickel Allergy (Mild, Verified 08/28/24 10:27) Rash Medication List - Last Reconciled 08/28/24 by Kvng Hampton MD alendronate 70 mg PO QWEEK 3 months bisacodyl (Dulcolax (bisacodyl)) 20 mg (4 x 5 mg) PO ONCE 1 day calcium citrate-vitamin D3 250 mg-5 mcg (200 unit) 1 tab PO DAILY 90 days polyethylene glycol 3350 (Miralax) 238 grams PO ONCE Tobacco use date assessed: 08/28/24 Fall risk assessment: No Falls in past year Last assessed Fall Risk: 08/28/24 Dental Screening Dental Screen Date: 08/28/24 Did you have a dental visit in the last 12 months?: Yes Did you have a dental problem in the last 6 months where you did not have access to dental care?: No Was dental information given to patient?: Patient has dentist HPI 6 month f/u HPI Details Patient comes in today for her follow up visit States that she feels okay She denies any headaches or dizziness Denies any chest pains, no SOB No nausea/vomiting, no abdominal pain No change in bowel habits noted She was not able to get her previously ordered labs done prior to her appointment today [facility] Medical History Mixed hyperlipidemia Osteoporosis Breast calcification, right Depression Smoker Pure hypercholesterolemia Surgical History No pertinent past surgical history Family History Other Family history non-contributory Social [facility] Patient Tobacco Use Status: Current everyday Tobacco user Cigarette Packs Per Day: 1 e-Cigarette/Vaping Use: Never Used service: No Current occupational status: retired Cognitive needs: No Hearing needs: No Vision needs: No Questionnaire PHQ-9 Over the last 2 weeks, how often have you been bothered by any of the following problems? 1. Little interest or pleasure in doing things: not at all 2. Feeling down, depressed, or hopeless: not at all 3. Trouble falling or staying asleep, or sleeping too much: several days 4. Feeling tired or having little energy: several days 5. Poor appetite or overeating: not at all 6. Feeling bad about yourself - or that you are a failure or have let yourself or your family down: not at all 7. Trouble concentrating on things, such as reading the newspaper or watching television: not at all 8. Moving or speaking so slowly that other people could have noticed. Or the opposite - being so fidgety or restless that you have been moving around a lot more than usual: not at all 9. Thoughts that you would be better off or of hurting yourself in some way: not at all Total score: 2 Depression Screening Interpretation: Negative Depression Screening Done: Yes 67564 - PHQ-9 Billing: Yes Source: Developed by Drs. Errol Spicer, Manuela Dunlap, Barry Urbina and colleagues, with an educational mick from [employer]. Thrive Questionnaire Date Thrive assessed: 08/28/24 I am a: Patient What is your living situation today?: I have a steady place to live Within the past 12 months, did the food you bought not last and you didn't have the money to get more?: Never true Within the past 12 months, did you worry whether your food would run out before you got money to buy more?: I choose not to answer this question Do you have trouble paying for medicines?: No Do you have trouble getting transportation to medical appointments?: No Do you have trouble paying your heating and electricity bill?: No Do you have trouble taking care of your child, family member or friend?: No Do you have trouble with day-to-day activities such as bathing, preparing meals, shopping, managing finances, etc.?: No Are you currently unemployed and looking for a job?: No Are you interested in more education?: No Please select the resources that you would like help with: None Currently or been in a relationship where the following occur: No concerns reported THRIVE Score: 0 AUDIT C Alcohol Use Questionnaire (AUDIT-C) 1. How often do you have a drink containing alcohol?: Monthly or less 2. How many drinks containing alcohol do you have on a typical day when you are drinking?: 1 or 2 3. How often do you have six or more drinks on one occasion?: Less than monthly Total Score: 2 Score Reviewed/Action Taken: Yes JORGE-7 AMB Questionnaire JORGE-7 Date JORGE - 7 assessed: 08/28/24 Feeling nervous, anxious, or on edge: 0 = Not at all Not being able to stop or control worryin = Not at all Worrying too much about different things: 0 = Not at all Trouble relaxin = Not at all Being so restless that it is hard to sit still: 0 = Not at all Becoming easily annoyed or irritable: 0 = Not at all Feeling afraid as if something awful might happen: 0 = Not at all Total JORGE-7 score (0-4 normal; 5-9 mild; 10-14 moderate; 15-21 severe): 0 Source: Developed by Drs. Errol Spicer, Manuela Dunlap, Barry Urbina and colleagues, with an educational mick from [employer]. Review of Systems Const Denies chills, Denies fatigue, Denies fever(s) and Denies headache(s) ENT Denies dysphagia, Denies dizziness, Denies otalgia, Denies headache(s), Denies neck pain, Denies odynophagia and Denies sore throat Card Denies chest pain, Denies irregular heart rhythm, Denies palpitations and Denies dyspnea Resp Denies chest congestion, Denies cough and Denies dyspnea GI Denies abdominal pain, Denies constipation, Denies dysphagia, Denies heartburn, Denies diarrhea, Denies nausea, Denies odynophagia and Denies vomiting Denies difficulty voiding, Denies nocturia, Denies dysuria and Denies urinary urgency Musc Denies back pain, Denies arthralgias and Denies neck pain Skin/Breast Denies rash Neuro Denies dizziness and Denies headache(s) Endo Denies fatigue and Denies palpitations Physical exam (Primary Care) Vital Signs: Last Vital Signs Pulse 90 08/28/24 10:03 BP 116/82 08/28/24 10:03 Pulse Ox 96 08/28/24 10:03 Oxygen Delivery Method Room Air 08/28/24 10:03 BMI result Body Mass Index 24.8 Tobacco/Smoking Status: Tobacco use Status Tobacco use date assessed 08/28/24 08/28/24 10:04 Patient Tobacco Use Status Current everyday Tobacco 08/28/24 10:04 e-Cigarette/Vaping Use Never Used 08/28/24 10:04 PHQ-9: PHQ-9 Score PHQ-9: Total score 2 08/28/24 10:04 Depression Screening Interpretation: Negative Thrive Assessment: Date of Thrive Assessment Date Thrive assessed 08/28/24 08/28/24 10:09 Currently or been in a relationship where the following occur: No concerns reported Const General: no acute distress and alert HENMT Ears: TM's normal bilaterally and EAC's normal Throat: Yes posterior oropharynx normal and Yes tonsils normal (no TP congestion) Neck Neck: Yes supple and No lymphadenopathy Thyroid: Thyroid normal Resp Auscultation: clear to auscultation bilaterally, no rales and no wheezes Cardio Rate: regular rate Rhythm: regular rhythm Heart sounds: no murmurs GI Palpation (GI): Soft to palpation and nontender Auscultation: normal bowel sounds General: Yes no CVA tenderness Back/Spine/Pelvis Back: no CVA tenderness Thoracic/Lumbar Spine: No lumbar spinal tenderness Skin Rashes: no rashes Extrem General: Yes no clubbing, cyanosis or edema Coding Level of Care Code Est Pt Level 4 (74355) Diagnoses Mixed hyperlipidemia E78.2 Age-related osteoporosis without current pathological fracture M81.0 Osteoporosis type: age-related Presence of current pathological fracture: without current pathological fracture Injury of left lower extremity, sequela S89.92XS Encounter type: sequela Smoker F17.200 Positive colorectal cancer screening using Cologuard test R19.5 Additional Codes PHQ-9 - 72627 - PHQ-9 Billing: Yes ([id number]) Assessment & Plan Assessment & Plan (1) Mixed hyperlipidemia: Code(s): E78.2 - Mixed hyperlipidemia Category: Medical Plan: Patient was not able to get her previously ordered labs done prior to her appointment today and she is encouraged to try to get these done TARYN As she has not yet eaten anything this morning, have advised her to proceed to the lab next door after she checks out from here and get them done today She is reminded that her cholesterol levels were slightly elevated and higher than recommended on her labs from last year She also had high cholesterol levels when they were previously checked back in 2016 Reinforced low cholesterol diet - advised LDL cholesterol goal of at least 130 mg/dl or less if she wishes to avoid having to go on cholesterol-lowering medications Depending on how her labs come out later today, may need to have her get some labs rechecked in 6 months - she is advised that we will reach out to her if any additional labs are needed for her next visit in the fall (2) Osteoporosis: Code(s): M81.0 - Age-related osteoporosis without current pathological fracture Category: Medical Qualifiers: Osteoporosis type: age-related Presence of current pathological fracture: without current pathological fracture Qualified Code(s): M81.0 - Age- related osteoporosis without current pathological fracture Plan: She is also reminded that her bone density done back in September 2023 revealed (+) osteoporosis, with the lowest T-score value of -3.1 in the femur neck and total femur - this is patient's baseline exam Continue Alendronate 70 mg Q week as instructed Continue also oral Vitamin D and Calcium supplements daily - Rx for Calcium Citrate + D3 tablets were previously sent to her pharmacy but she is advised that if her insurance will not cover them, she can get these on her own OTC with no Rx needed (3) Left leg injury: Comment: (+) prominent tendon on the lateral aspect of the distal left leg - s/p injury to leg years ago Code(s): S89.92XA - Unspecified injury of left lower leg, initial encounter Category: Medical Qualifiers: Encounter type: sequela Qualified Code(s): S89.92XS - Unspecified injury of left lower leg, sequela Plan: Patient was previously sent for some precautionary x-rays of her leg but she did not get these done States that her leg has not really been bothering her as much lately and she does not wish to do anything for this now She recalls sustaining an injury to her left leg when she was working over 25 years ago but she never did get her injury checked out at the time as it was not really bothering her too much States that she has mentioned this to her doctor at the time but was reportedly advised to just watch it (observation) and call if it starts to bother her (4) Smoker: Code(s): F17.200 - Nicotine dependence, unspecified, uncomplicated Category: Social Hx Plan: Patient is counseled again on complete smoking cessation (5) Positive colorectal cancer screening using Cologuard test: Code(s): R19.5 - Other fecal abnormalities Category: Medical Plan: She was seen by GI last year (November 2023) for her positive Cologuard test and was originally scheduled for her colonoscopy in May 2024 but she ended up cancelling it and has not been able to get that rescheduled yet Have advised her to try reaching out to GI again and get her colonoscopy scheduled TARYN as it has been almost a year now since she tested positive on her Cologuard Plan Follow up in 6 months
== END 2024-08-28 10:38 | disposition home or self-care (01) ==
LOC: HO.HMCH 09:59
PROVIDERS: PCP Internal Medicine; Visit Provider Internal Medicine
DX: E78.2 Mixed hyperlipidemia (principal); M81.0 Age-related osteoporosis without current pathological fracture; S89.92XS Unspecified injury of left lower leg, sequela; F17.200 Nicotine dependence, unspecified, uncomplicated; R19.5 Other fecal abnormalities

== ENCOUNTER 2024-09-26 09:57 | Outpatient (REF) | payer MEDICARE, SELFPAY ==
--- NOTE | ~2024-09-26 | MM_ITS ---
EXAMINATION: STEREOTACTICALLY-GUIDED RIGHT BREAST BIOPSY CLINICAL INFORMATION: Right calcifications COMPARISON: Priors on PACS. INFORMED CONSENT: After the details of the procedure, as well as the risks (including, but not limited to, bleeding, hematoma formation, and infection), benefits and alternatives (including doing nothing, short-interval follow up, and surgery) to the procedure were explained to the patient in detail and all of her questions were answered, informed written consent was obtained. TECHNIQUE/FINDINGS: A timeout was performed. The lesion intended for biopsy was identified stereotactically and targeted. The skin of the Right breast was then cleansed with sterile solution. Using stereotactic guidance, aseptic technique, and 1% lidocaine with and without epinephrine for local anesthesia, a total of 12 cores were obtained through the targeted area with a 9-gauge vacuum-assisted Eviva core biopsy device from a medial approach. Specimen radiography reveals the targeted calcifications in the sampled tissue. At the completion of tissue sampling, a single top hat-shaped metallic clip was deposited at the biopsy site. Adequate sampling was achieved. The postprocedure 2-view direct digital mammogram reveals satisfactory positioning of the biopsy clip. The patient tolerated the procedure well and, after assuring adequate hemostasis, was discharged in good condition after reviewing postbiopsy breast care instructions. Final pathology results are pending. MM/MM stereotactic biopsy RT IMPRESSION: 1. Uncomplicated stereotactically-guided core biopsy of the right breast. The 2-view direct digital postprocedure mammogram reveals satisfactory positioning of the biopsy clip. 2. Final pathology results are pending. A separate report with final recommendations will be issued once these results are made available. Electronically signed by: Shahida Escudero DO 09/26/2024 12:15 PM EDT
[2024-09-26] MEDS: Lidocaine HCl 1%/Epi 1:100,000 10 ML VIAL 11 ML SUBCUT (11:44)
[2024-09-26] MEDS: Sodium Bicarbonate 8.4% 50 MEQ/50 ML VIAL SUBCUT (11:45)
== END 2024-09-26 09:58 | disposition home or self-care (01) ==
LOC: HO.MAMMO 09:57
PROVIDERS: PCP Internal Medicine; Visit Provider Surgery
DX: D05.11 Intraductal carcinoma in situ of right breast (principal); R92.1 Mammographic calcification found on diagnostic imaging of breast
CPT/HCPCS: 19081; 88305; 88360; A4648; J2004

== ENCOUNTER → 2024-09-26 10:00 | Outpatient (BNV) | payer MEDICARE, SELFPAY | PROVIDERS: PCP Internal Medicine; Visit Provider Internal Medicine | DX: R92.1 Mammographic calcification found on diagnostic imaging of breast (principal) | CPT/HCPCS: 19081; 77065 ==

== ENCOUNTER 2024-10-03 13:32 | Outpatient (AMB) | payer MEDICARE, SELFPAY ==
--- NOTE | 2024-10-03 13:45 | MHC.OFFVIS ---
Vital Signs 10/03/24 13:54 Height 5 ft 2 in Weight 138 lb BMI 25.2 BP 136/78 Blood Pressure Location Rt brachial Position Sitting Pulse 68 Intake Visit Reasons: discuss results Intake Note: Patient here to discuss Breast, right, stereotactic biopsy results. Reports bx site healing well. 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 She had undergone screening mammography last November, month and this showed suspicious calcification in the lower inner quadrant of the right breast. A stereotactic biopsy was scheduled then, but when she came in for the biopsy, the calcifications noted to be consistent with vascular calcifications so the biopsy was canceled. She was asked to follow up in 6 months for repeat imaging She had the repeat imaging done last month in the pleomorphic calcifications appeared to be larger so she underwent tactic biopsy. This showed DCIS so she was referred to me. She says she has not felt any lump on the right breast. Her menarche was at age of 13. Her 1st was at age of 32. She has 3 pregnancies. She had menopause in her early 50s. He denies any family history of breast cancer. She admits to being heavy smoker. She tolerated the biopsy well and denies any hematoma. [facility] Medical History (Updated 10/03/24 @ 14:07 by German Richards MD) DCIS (ductal carcinoma in situ) Mixed hyperlipidemia Osteoporosis Breast calcification, right Depression Smoker Pure hypercholesterolemia Surgical History No pertinent past surgical history Family History Other Family history non-contributory Social History Housing: Condominium Patient Tobacco Use Status: Current everyday Tobacco user Cigarette Packs Per Day: 1 e-Cigarette/Vaping Use: Never Used service: No Current occupational status: retired Cognitive needs: No Hearing needs: No Vision needs: No Review of Systems Const Denies chills and Denies fever(s) Card Denies chest pain, Denies dyspnea and Denies dyspnea on exertion Resp Denies cough, Denies dyspnea and Denies dyspnea on exertion GI Denies hematochezia and Denies change in bowel habits Denies hematuria Musc Denies back pain and Denies limited range of motion Neuro Denies focal weakness and Denies convulsions Psych Denies depression and Denies mood swings Physical Exam Vital Signs: Last Vital Signs Pulse 68 10/03/24 13:54 BP 136/78 10/03/24 13:54 BMI result Body Mass Index 25.2 Const General: comfortable and no acute distress Orientation/consciousness: patient oriented x3 Neck Neck: Yes no lymphadenopathy Chest Other: No palpable masses in the right breast, some mild ecchymosis on the biopsy site Resp Auscultation: clear to auscultation bilaterally Cardio Rhythm: regular rhythm GI Palpation (GI): Soft to palpation, nontender and no guarding Neuro General: patient oriented x3 Assessment & Plan Assessment & Plan (1) DCIS (ductal carcinoma in situ): Code(s): D05.10 - Intraductal carcinoma in situ of unspecified breast Category: Medical Plan: She has an area of grouped calcifications on the right breast at the medial aspect and stereotactic biopsy showed DCIS, high nuclear grade, ERPR negative. I therefore explained to her the need to proceed with surgical treatment. I explained the option of breast conservation therapy with lumpectomy which may need to be followed by radiation. The other option is to do a full mastectomy. Explained the risks, benefits, advantages and disadvantages of both procedures. She understands that if she proceeds with lumpectomy, she may need to undergo radiation for the entire breast She also understands that she may require additional surgeries with lumpectomy down the line or even sentinel node biopsy if any he had grade lesion is found She says she wants to proceed with lumpectomy with the Hologic localizer. She understands the procedure Her daughter was with her during the visit She was also be referred to the oncologist. Orders: Referrals Hematology & Oncology Referral D05.10 - Intraductal carcinoma in situ of unspecified breast Coding Level of Care Code Est Pt Level 4 (47998) Diagnoses DCIS (ductal carcinoma in situ) D05.10
[2024-10-03 13:54] VITALS: BP 136/78; PULSE 68; BMI 25.2
== END 2024-10-03 14:02 | disposition home or self-care (01) ==
LOC: HO.HGS 13:33
PROVIDERS: PCP Internal Medicine; Visit Provider Surgery
DX: D05.10 Intraductal carcinoma in situ of unspecified breast (principal)
CPT/HCPCS: 99214

== ENCOUNTER → 2024-10-03 13:32 | Outpatient (BNVA) | payer MEDICARE, SELFPAY | PROVIDERS: PCP Internal Medicine; Visit Provider Surgery | DX: D05.11 Intraductal carcinoma in situ of right breast (principal) | CPT/HCPCS: 99212 ==

== ENCOUNTER 2024-11-06 07:54 | Outpatient (REF) | payer MEDICARE, SELFPAY ==
--- NOTE | ~2024-11-06 | MM_ITS ---
EXAMINATION: MM MAMMOGRAM GUIDED RFID LOCALIZATION BREAST, RIGHT BREAST CLINICAL INFORMATION: Right breast ductal carcinoma in situ. COMPARISON: Comparison is made with available priors. TECHNIQUE NEEDLE LOC: Proper informed consent is obtained from the patient after discussion of the procedure, potential risks and complications, and alternatives including declining the procedure today. Patient was given an opportunity for questions. The patient appeared to understand. The patient consented to the procedure and signed the consent form. GUIDANCE: Digital mammography. APPROACH: Medial. 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 ANESTHESIA: carbonated lidocaine 1%: 12 mL. LOCALIZATION SYSTEM: [employer] Pro LOCallizer Wire-Free Guidance System with 12g needle applicator. RADIOFREQUENCY TAG: ID # [id number] RF Tag ID confirmed with LOCalizer Guidance System prior to placement. The skin is prepped and local anesthesia administered. The needle is positioned and RFID tag deployed. Final images demonstrate the LOCalizer RF tag to reside adjacent to the marker clip. The patient tolerated the procedure well and had no immediate complications. Dressing placed and home instructions reviewed. MM/MM RF Tag device RT IMPRESSION: -Status post right breast breast RFID localization. Electronically signed by: Shahida Escudero DO 11/06/2024 09:48 AM EDT
[2024-11-06] MEDS: Lidocaine HCl 1 % 20 ML VIAL 12 ML SUBCUT (09:01)
== END 2024-11-06 07:55 | disposition home or self-care (01) ==
LOC: HO.MAMMO 07:54
PROVIDERS: PCP Internal Medicine; Visit Provider Surgery
DX: D05.11 Intraductal carcinoma in situ of right breast (principal)
CPT/HCPCS: 19281; C1819; J2003

== ENCOUNTER → 2024-11-06 08:00 | Outpatient (BNV) | payer MEDICARE, SELFPAY | PROVIDERS: PCP Internal Medicine; Visit Provider Internal Medicine | DX: D05.11 Intraductal carcinoma in situ of right breast (principal) | CPT/HCPCS: 19281; 77065 ==

== ENCOUNTER → 2024-11-07 15:03 | Outpatient (BNV) | payer MEDICARE, SELFPAY | PROVIDERS: PCP Internal Medicine; Visit Provider Internal Medicine Medical Oncology | DX: D05.11 Intraductal carcinoma in situ of right breast (principal) | CPT/HCPCS: 99204 ==

== ENCOUNTER 2024-11-12 07:08 | Day surgery (SDC) | payer MEDICARE, SELFPAY ==
[2024-11-08 12:29] VITALS: BMI 25.2
--- NOTE | 2024-11-11 12:23 | HO.ANESPROP2 ---
Documented by User: Mesha Singh NP 11/11/24 12:24 HPI - Anesthesia Eval Consult details Narrative: 73 yr old female for right Breast Lumpectomy w/ localizer. Smoker PMFSH Active Problems Active Problems: All Active Problems (Updated 11/07/24 @ 15:27 by Mary Daniel MD) DCIS (ductal carcinoma in situ) (Acute) Mixed hyperlipidemia (Acute) Osteoporosis (Acute) Left leg injury (Acute) Breast calcification, right (Acute) Positive colorectal cancer screening using Cologuard test (Acute) Colon cancer screening (Acute) Osteoporosis screening (Acute) Breast cancer screening by mammogram (Acute) Annual physical exam (Acute) Smoker (Acute) Pure hypercholesterolemia (Acute) Past Medical History Medical History DCIS (ductal carcinoma in situ) Mixed hyperlipidemia Osteoporosis Breast calcification, right Depression Smoker Pure hypercholesterolemia Family History Family History Other Family history non-contributory Surgical History Surgical History Hx of tooth extraction Social History Social History Household Members: None Housing: Condominium Are you a primary care assistant to a significant other at home: No Do you presently have visiting nurse or other home services: No Patient Tobacco Use Status: Current everyday Tobacco user Tobacco use type: Cigarette Cigarette Packs Per Day: 1 Smoked in Last 30 Days: Yes e-Cigarette/Vaping Use: Never Used Patient Interested in Nicotine Replacement: No Substance Use Type: Marijuana Substance Use Frequency: Occasionally Have you been hit, kicked, punched, or otherwise hurt by someone within the past year? If so, by whom?: No Are you DNR?: No Advance Directives: No Advance Directives Information Provided: Yes Poor oral hygiene: Yes service: No Current occupational status: retired Cognitive needs: No Hearing needs: No Vision needs: No Meds Allergies Allergy/AdvReac Type Severity Reaction Status Date / Time nickel Allergy Mild Rash Verified 11/12/24 07:45 Home Medications ?Medication ?Instructions ?Recorded ?Confirmed ?Last Taken ?Type calcium 250 mg (as 1 tab PO DAILY 11/08/24 11/08/24 Unknown History citrate)-vitamin D3 5 mcg (200 unit) tablet Exam Height,Weight and Vital Signs: Height 5 ft 2 in Weight 62.596 kg Documented by User: Shelley Zayas MD 11/12/24 09:16 [facility] Past Medical History Medical History DCIS (ductal carcinoma in situ) Mixed hyperlipidemia Osteoporosis Breast calcification, right Depression Smoker Pure hypercholesterolemia Family History Family History Other Family history non-contributory Surgical History Surgical History Hx of tooth extraction History of Problems with Anesthesia: No Social History Social History Household Members: None Housing: Condominium Are you a primary care assistant to a significant other at home: No Do you presently have visiting nurse or other home services: No Patient Tobacco Use Status: Current everyday Tobacco user Tobacco use type: Cigarette Cigarette Packs Per Day: 1 Smoked in Last 30 Days: Yes e-Cigarette/Vaping Use: Never Used Patient Interested in Nicotine Replacement: No Substance Use Type: Marijuana Substance Use Frequency: Occasionally Have you been hit, kicked, punched, or otherwise hurt by someone within the past year? If so, by whom?: No Are you DNR?: No Advance Directives: No Advance Directives Information Provided: Yes Poor oral hygiene: Yes service: No Current occupational status: retired Cognitive needs: No Hearing needs: No Vision needs: No Meds Allergies Allergy/AdvReac Type Severity Reaction Status Date / Time nickel Allergy Mild Rash Verified 11/12/24 07:45 Home Medications ?Medication ?Instructions ?Recorded ?Confirmed ?Last Taken ?Type calcium 250 mg (as 1 tab PO DAILY 11/08/24 11/08/24 Unknown History citrate)-vitamin D3 5 mcg (200 unit) tablet Exam Airway Mallampati Class: II TM Dist: >3cm Neck ROM: Full Partial: Upper and Lower Loose/Missing/Broken Teeth: Yes, Upper and Lower Heart: RRR Lungs: CTA Assessment and Plan Assessment Anesthesia Assessment: Anesthesia Plan Discussed and Chart Reviewed Final Anesthetic Review History of Problems with Anesthesia: No NPO: Yes ASA Class: II Final Preanesthetic Review: Meds/Allgs Chart Reviewed, Consent Obtained/Reviewed and Anes Risks/Benef Reviewed Patient Risk: Low Procedure Risk: Low Anesthetic Plan Anesthetic Plan: GA Disposition: Standard PACU
--- NOTE | ~2024-11-12 | MM_ITS ---
Right single specimen radiograph demonstrates the top hat clip and the LOCalizer tag within the specimen. Electronically signed by: Jose Echeverria MD 11/12/2024 07:35 PM EDT
[2024-11-12 07:15] VITALS: BMI 25.2
[2024-11-12] MEDS: Lactated Ringers 1,000 ML 100 ML IVCONT (07:35)
[2024-11-12 07:43] VITALS: BP 133/83; PULSE 82; RESP 18; TEMP 36.7; O2SAT 96
--- NOTE | 2024-11-12 08:32 | MHC.SHP ---
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, for lumpectomy today; Hologic localizer placed Relevant Family History (Specify if Yes): No Relevant Social History: None Present Medications: see Short Stay Collaborative assessment Medical History: Significant History (Osteoporosis, smoker, hyperlipidemia) Allergies: Allergies Allergy/AdvReac Type Severity Reaction Status Date / Time nickel Allergy Mild Rash Verified 11/12/24 07:45 Review of Systems Sugical H&P ROS: Negative: Constitution, Cardiovascular and Respiratory Exam Surgical H&P Exam: Normal: Heart, Normal: Lungs and Normal: Abdomen Exam Comment: No palpable mass Plan Diagnosis/Plan: Unchanged I have reviewed the history and physical and performed a pertinent physical examination on my patient. No changes have occurred unless specified. Time Spent With Patient Time: Total time managing care of this patient today ____ minutes.
--- NOTE | 2024-11-12 09:53 | P.OP_ITS ---
Operative Note Operative Note Date of Service: 11/12/24 Narrative: Preop diagnosis: DCIS, right breast Postop diagnosis: The same Procedure: Lumpectomy with the Hologic localizer, right breast Surgeon: German Richards MD assistant food service manager: NICKO oYung The patient is a 73 year old female with a recent diagnosis of DCIS. She is here for lumpectomy with the Hologic localizer. She had the RF ID clip placed last week. She understood the technique of the planned procedure as well as the risks, benefits, and alternatives. She was brought to the operating room placed supine under general anesthesia via laryngeal mask airway. The right breast was prepped and draped in the usual sterile fashion. A surgical time-out was done. The patient received cefazolin 2 g IV preoperatively I used the Hologic localizer to identify the area on the skin that was this has through the RF ID clip. This was on the medial aspect of the right breast. I marked this area and infiltrated the skin with lidocaine 1%. I made a transverse incision with a blade 15. This carried down through the full- thickness of the skin and subcutaneous fat with electrocautery. I then used the Hologic localizer to guide our dissection. I used the curved Frances scissors to dissect around the area of the RF ID clip, periodically using the Hologic localizer as we circumferentially dissected around this area I completed the dissection circumferentially. I marked the superior and medial margins with sutures. The Hologic localizer confirmed the presence of the RF ID clip in the specimen. We did a re-ray of the specimen in the room which confirmed the presence of both the RF ID clip in the biopsy clip. We examined the lumpectomy site. We cauterized oozing areas. Once hemostasis was confirmed, we irrigated. We reapposed the deep breast tissue with Polysorb 3-0 simple interrupted sutures. Skin closure was achieved with Polysorb 4-0 subcuticular running stitch I brought down the specimen to the pathologist. I reviewed the specimens with the pathologist. The margins appeared grossly negative. The biopsy cavity was also seen well. Once the margins were deemed to be adequate, we infiltrated the surgical site with Marcaine 0.5% for postop analgesia. Dressings were applied. The procedure was then completed The patient tolerated the procedure well. There were no immediate complications. Initial and final counts of sponges and instruments were correct. Estimated blood loss was was 25 cc. The patient was then extubated without difficulty and transferred to the recovery room with stable vital signs. Breast [place] Node Biopsy Substrate(s) used for sentinel node biopsy in the non-neoadjuvant setting: N/A Substrate(s) used for sentinel node biopsy in the neoadjuvant setting: N/A All colored nodes or non-colored nodes present at the end of a dye filled lymphatic channel were removed, if dye was used as the substrate for localization: N/A All significantly radioactive nodes were removed, if radionuclide was used as the substrate for localization: N/A All palpably suspicious nodes were removed, if present: N/A If clips were placed in pathology-involved nodes, those nodes were identified and removed: N/A Procedure performed with curative intent?: Yes General Surg. - Synoptic Notes Breast [place] Node Biopsy Substrate(s) used for sentinel node biopsy in the non-neoadjuvant setting: N/A Substrate(s) used for sentinel node biopsy in the neoadjuvant setting: N/A All colored nodes or non-colored nodes present at the end of a dye filled lymphatic channel were removed, if dye was used as the substrate for localization: N/A All significantly radioactive nodes were removed, if radionuclide was used as the substrate for localization: N/A All palpably suspicious nodes were removed, if present: N/A If clips were placed in pathology-involved nodes, those nodes were identified and removed: N/A Procedure performed with curative intent?: Yes
[2024-11-12 10:03] VITALS: BP 147/79; PULSE 86; RESP 18; TEMP 36.4; O2SAT 97
[2024-11-12 10:08] VITALS: BP 168/81; PULSE 88; RESP 18; O2SAT 96
[2024-11-12 10:13] VITALS: BP 145/67; PULSE 77; RESP 8; O2SAT 98
[2024-11-12 10:18] VITALS: BP 139/76; PULSE 71; RESP 13; O2SAT 97
[2024-11-12 10:33] VITALS: BP 128/67; PULSE 81; RESP 15; TEMP 36.6; O2SAT 96
== END 2024-11-12 11:06 | disposition home or self-care (01) ==
PROVIDERS: PCP Internal Medicine; Visit Provider Surgery
PROC: (CPT 19301; principal; 2024-11-12 09:00)
DX: D05.11 Intraductal carcinoma in situ of right breast (principal); Z17.1 Estrogen receptor negative status [ER-]; Z17.22 Progesterone receptor negative status; F17.210 Nicotine dependence, cigarettes, uncomplicated; E78.2 Mixed hyperlipidemia; M81.0 Age-related osteoporosis without current pathological fracture; F32.A Depression, unspecified; Z79.899 Other long term (current) drug therapy
CPT/HCPCS: 19301; 88307; 88360; J0131; J0690; J1100; J2003; J2405; J2704; J2795; J3010

== ENCOUNTER → 2024-11-12 07:08 | Outpatient (BNV) | payer MEDICARE, SELFPAY | PROVIDERS: PCP Internal Medicine; Visit Provider Surgery | DX: D05.11 Intraductal carcinoma in situ of right breast (principal) | CPT/HCPCS: 19301 ==

== ENCOUNTER 2024-12-09 14:57 | Outpatient (AMB) | payer MEDICARE, SELFPAY ==
--- NOTE | 2024-12-09 15:01 | MHC.OFFVIS ---
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 Patient c/o: reports incision healed well. Feels hard like a scar. 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 She tolerated the procedure well. She currently denies significant complaints. [facility] Medical History DCIS (ductal carcinoma in situ) Mixed hyperlipidemia Osteoporosis Breast calcification, right Depression Smoker Pure hypercholesterolemia Surgical History History of lumpectomy of right breast (11/12/24) Hx of tooth extraction Family History Other Family history non-contributory Social History Household Members: None Housing: Condominium Are you a primary critical care nurse practitioner to a significant other at home: No Do you presently have visiting nurse or other home services: No Patient Tobacco Use Status: Current everyday Tobacco user Tobacco use type: Cigarette Cigarette Packs Per Day: 1 e-Cigarette/Vaping Use: Never Used Substance Use Type: Marijuana service: No Current occupational status: retired Cognitive needs: No Hearing needs: No Vision needs: No Review of Systems Const Denies chills and Denies fever(s) Card Denies chest pain and Denies dyspnea on exertion Resp Denies dyspnea on exertion GI Denies abdominal pain Physical Exam Const General: comfortable and no acute distress Chest Other: Lumpectomy site on the right is well healed, not infected, no hematoma, no axillary lymphadenopathy Assessment & Plan Assessment & Plan (1) DCIS (ductal carcinoma in situ): Code(s): D05.10 - Intraductal carcinoma in situ of unspecified breast Category: Medical Plan: Status post lumpectomy. Her final path report shows DCIS. The posterior margins appeared to be close at 1 mm and 1.5 mm anteriorly. I explained to her that current recommendations include re-excision for wider margins of 2 mm total. I therefore explained to her that I can schedule her for re-excision for wider margins in the operating room. I explained the technique of this procedure. I reviewed the risks, benefits, and alternatives. She says that she is not keen on having re-excision for wider margins currently. I will need to see her again next month to see how she is doing and I asked her to think about this option in view of the risk of local recurrence She also is receptor positive for ER and OH so she is not a candidate for hormonal therapy She is not wanting radiation as well which I had recommended because of the DCIS with close margins. I also told her that she should follow up with Dr. Daniel about the above. Coding Level of Care Code Global (19442) Diagnoses DCIS (ductal carcinoma in situ) D05.10
[2024-12-09 15:07] VITALS: BP 134/86; PULSE 78; BMI 25.7
== END 2024-12-09 15:20 | disposition home or self-care (01) ==
PROVIDERS: PCP Internal Medicine; Visit Provider Surgery
DX: D05.10 Intraductal carcinoma in situ of unspecified breast (principal)
CPT/HCPCS: 99024

== ENCOUNTER → 2024-12-09 14:57 | Outpatient (BNVA) | payer MEDICARE, SELFPAY | PROVIDERS: PCP Internal Medicine; Visit Provider Surgery | DX: D05.11 Intraductal carcinoma in situ of right breast (principal) | CPT/HCPCS: 99212 ==

== ENCOUNTER 2025-02-28 09:37 | Outpatient (AMB) | payer MEDICARE, SELFPAY ==
[2025-02-28 09:41] VITALS: BP 120/80; PULSE 81; O2SAT 97; BMI 26.1
--- NOTE | 2025-02-28 09:41 | MHC.PC.OV ---
Vital Signs 02/28/25 09:41 Height 5 ft 1 in Weight 138 lb 2 oz BMI 26.1 BP 120/80 Blood Pressure Location Lt brachial Position Sitting Pulse 81 Pulse Source Pulse Oximeter Pulse Oximetry (%) 97 Oxygen Delivery Method Room Air Intake Visit Reasons: 6mth f/u Chaperon Required: No Accompanied by: Self / Same As Patient Allergies nickel Allergy (Mild, Verified 02/28/25 10:05) Rash Medication List - Last Reconciled 02/28/25 by Kvng Hampton MD No Known Home Meds Tobacco use date assessed: 02/28/25 Fall risk assessment: No Falls in past year Last assessed Fall Risk: 02/28/25 Dental Screening Dental Screen Date: 02/28/25 Did you have a dental visit in the last 12 months?: Yes Did you have a dental problem in the last 6 months where you did not have access to dental care?: No Was dental information given to patient?: Patient has dentist HPI 6mth f/u HPI Details Patient comes in today for her follow up visit States that she feels okay She was diagnosed with DCIS of the right breast a few months ago after her repeat/follow up mammogram came back with suspicious findings (she did have calcifications noted on mammogram last year in 2023 but these were then marked as consistent with vascular calcifications so her biopsy last year was cancelled) She underwent lumpectomy with Dr. Richards on 11/12/2024 and pathology revealed DCIS, that was both ER and IN negative so she would not benefit from antiestrogen therapy She was recommended to undergo postlumpectomy radiation to decrease her chances or recurrence and was referred to Dr. Lopez at [facility] but patient admitted that she ended up cancelling her appointment with Dr. Lopez back in December 2024 at the last minute as she really did not want to go for radiation treatment - felt that her surgery was too painful and she did not want to go through any procedure that would result in increased pain again States that she also ended up cancelling her follow up appointment with Dr. Daniel a couple of months ago and has not rescheduled her appointment yet She was also referred to GI last year for colonoscopy due to a positive Cologuard test earlier last year but she also admitted that she did not keep her GI appointment - states that she currently has no acute GI symptoms She denies any headaches or dizziness Denies any chest pains, no SOB No nausea/vomiting, no abdominal pain No change in bowel habits noted She has no follow up labs done recently but would like to go over in more details her lab results done after her last visit in August 2024 [facility] Medical History DCIS (ductal carcinoma in situ) Mixed hyperlipidemia Osteoporosis Breast calcification, right Depression Smoker Pure hypercholesterolemia Surgical History History of lumpectomy of right breast (11/12/24) Hx of tooth extraction Family History Other Family history non-contributory Social History Household Members: None Housing: Condominium Are you a primary respiratory care faculty to a significant other at home: No Do you presently have visiting nurse or other home services: No Patient Tobacco Use Status: Current everyday Tobacco user Tobacco use type: Cigarette Cigarette Packs Per Day: 1 e-Cigarette/Vaping Use: Never Used Substance Use Type: Marijuana service: No Current occupational status: retired Cognitive needs: No Hearing needs: No Vision needs: No Questionnaire PHQ-9 Over the last 2 weeks, how often have you been bothered by any of the following problems? 1. Little interest or pleasure in doing things: not at all 2. Feeling down, depressed, or hopeless: not at all 3. Trouble falling or staying asleep, or sleeping too much: several days 4. Feeling tired or having little energy: several days 5. Poor appetite or overeating: not at all 6. Feeling bad about yourself - or that you are a failure or have let yourself or your family down: not at all 7. Trouble concentrating on things, such as reading the newspaper or watching television: not at all 8. Moving or speaking so slowly that other people could have noticed. Or the opposite - being so fidgety or restless that you have been moving around a lot more than usual: not at all 9. Thoughts that you would be better off or of hurting yourself in some way: not at all Total score: 2 Depression Screening Interpretation: Negative Depression Screening Done: Yes 71574 - PHQ-9 Billing: Yes Source: Developed by Drs. Errol Spicer, Manuela Dunlap, Barry Urbina and colleagues, with an educational mick from [employer]. Thrive Questionnaire Date Thrive assessed: 02/28/25 I am a: Patient What is your living situation today?: I have a steady place to live Within the past 12 months, did the food you bought not last and you didn't have the money to get more?: Never true Within the past 12 months, did you worry whether your food would run out before you got money to buy more?: I choose not to answer this question Do you have trouble paying for medicines?: No Do you have trouble getting transportation to medical appointments?: No Do you have trouble paying your heating and electricity bill?: No Do you have trouble taking care of your child, family member or friend?: No Do you have trouble with day-to-day activities such as bathing, preparing meals, shopping, managing finances, etc.?: No Are you currently unemployed and looking for a job?: No Are you interested in more education?: No Please select the resources that you would like help with: None Currently or been in a relationship where the following occur: No concerns reported THRIVE Score: 0 AUDIT C Alcohol Use Questionnaire (AUDIT-C) 1. How often do you have a drink containing alcohol?: Monthly or less 2. How many drinks containing alcohol do you have on a typical day when you are drinking?: 1 or 2 3. How often do you have six or more drinks on one occasion?: Less than monthly Total Score: 2 Score Reviewed/Action Taken: Yes JORGE-7 AMB Questionnaire JORGE-7 Date JORGE - 7 assessed: 02/28/25 Feeling nervous, anxious, or on edge: 0 = Not at all Not being able to stop or control worryin = Not at all Worrying too much about different things: 0 = Not at all Trouble relaxin = Not at all Being so restless that it is hard to sit still: 0 = Not at all Becoming easily annoyed or irritable: 0 = Not at all Feeling afraid as if something awful might happen: 0 = Not at all Total JORGE-7 score (0-4 normal; 5-9 mild; 10-14 moderate; 15-21 severe): 0 Source: Developed by Drs. Errol Spicer, Manuela Dunlap, Barry Urbina and colleagues, with an educational mick from [employer]. Review of Systems Const Denies chills, Denies fatigue, Denies fever(s) and Denies headache(s) ENT Denies dysphagia, Denies dizziness, Denies otalgia, Denies headache(s), Denies neck pain, Denies odynophagia and Denies sore throat Card Denies chest pain, Denies irregular heart rhythm, Denies palpitations and Denies dyspnea Resp Denies chest congestion, Denies cough and Denies dyspnea GI Denies abdominal pain, Denies constipation, Denies dysphagia, Denies heartburn, Denies diarrhea, Denies nausea, Denies odynophagia and Denies vomiting Denies difficulty voiding, Denies nocturia, Denies dysuria and Denies urinary urgency Musc Denies back pain, Denies arthralgias and Denies neck pain Skin/Breast Denies rash Neuro Denies dizziness and Denies headache(s) Endo Denies fatigue and Denies palpitations Physical exam (Primary Care) Vital Signs: Last Vital Signs Pulse 81 02/28/25 09:41 BP 120/80 02/28/25 09:41 Pulse Ox 97 02/28/25 09:41 Oxygen Delivery Method Room Air 02/28/25 09:41 BMI result Body Mass Index 26.1 Tobacco/Smoking Status: Tobacco use Status Tobacco use date assessed 02/28/25 02/28/25 09:47 Patient Tobacco Use Status Current everyday Tobacco 02/28/25 09:47 Tobacco use type Cigarette 02/28/25 09:47 e-Cigarette/Vaping Use Never Used 02/28/25 09:47 PHQ-9: PHQ-9 Score PHQ-9: Total score 2 02/28/25 09:47 Depression Screening Interpretation: Negative Thrive Assessment: Date of Thrive Assessment Date Thrive assessed 02/28/25 02/28/25 09:47 Currently or been in a relationship where the following occur: No concerns reported Const General: no acute distress and alert HENMT Ears: TM's normal bilaterally and EAC's normal Throat: Yes posterior oropharynx normal and Yes tonsils normal (no TP congestion) Neck Neck: Yes supple and No lymphadenopathy Thyroid: Thyroid normal Resp Auscultation: clear to auscultation bilaterally, no rales and no wheezes Cardio Rate: regular rate Rhythm: regular rhythm Heart sounds: no murmurs GI Palpation (GI): Soft to palpation and nontender Auscultation: normal bowel sounds General: Yes no CVA tenderness Back/Spine/Pelvis Back: no CVA tenderness Thoracic/Lumbar Spine: No lumbar spinal tenderness Skin Rashes: no rashes Extrem General: Yes no clubbing, cyanosis or edema Results Reviewed Results Reviewed: Laboratory Tests 08/28/24 11/07/24 12/09/24 10:59 16:13 10:51 WBC 7.8 Hgb 14.8 Hct 43.6 Plt Count 248 Sodium 142 Potassium 4.7 Creatinine 0.78 Estimated GFR > 60 Random Glucose 99 Calcium 10.3 H Triglycerides 336 H Cholesterol 247 H LDL Cholesterol, Calc 143 H HDL Cholesterol 37 L 25-OH Vitamin D Total 49.1 Coding Level of Care Code Est Pt Level 4 (68854) Diagnoses Ductal carcinoma in situ (DCIS) of right breast D05.11 Laterality: right Mixed hyperlipidemia E78.2 Age-related osteoporosis without current pathological fracture M81.0 Osteoporosis type: age-related Presence of current pathological fracture: without current pathological fracture Smoker F17.200 Positive colorectal cancer screening using Cologuard test R19.5 Additional Codes PHQ-9 - 76097 - PHQ-9 Billing: Yes ([id number]) Assessment & Plan Assessment & Plan (1) DCIS (ductal carcinoma in situ): Code(s): D05.10 - Intraductal carcinoma in situ of unspecified breast Category: Medical Qualifiers: Laterality: right Qualified Code(s): D05.11 - Intraductal carcinoma in situ of right breast Plan: Patient was diagnosed with DCIS of the right breast a few months ago after her repeat/follow up mammogram in August 2024 came back with suspicious findings (she did have calcifications noted on mammogram last year in 2023 but these were then marked as consistent with vascular calcifications so her biopsy last year was cancelled) She underwent lumpectomy with Dr. Richards on 11/12/2024 and pathology revealed DCIS, that was both ER and IN negative so she would not benefit from antiestrogen therapy She was recommended to undergo postlumpectomy radiation to decrease her chances of recurrence and was referred to Dr. Lopez at [facility] but patient ended up cancelling her appointment back in December 2024 as she really did not want to go for radiation treatment - she felt that her breast surgery was too painful and she did not want to go through any procedure that would result in increased pain again States that she also ended up cancelling her follow up appointment with Dr. Daniel a couple of months ago and has not rescheduled her appointment yet and is advised to reach out to Dr. Daniel's office to schedule her follow up appt TARYN (2) Mixed hyperlipidemia: Code(s): E78.2 - Mixed hyperlipidemia Category: Medical Plan: Results of her labs done back in August 2024 reviewed and discussed with patient - she is advised that her cholesterol levels remain elevated and have gone up much higher from her numbers last year, with her triglyceride level now at 336 mg/dl (173 mg/dl last year) Her total cholesterol was up at 247 mg/dl and LDL cholesterol at 143 mg/dl She also had high cholesterol levels when they were previously checked back in 2016 Reinforced low cholesterol diet - advised LDL cholesterol goal of at least 130 mg/dl or less if she wishes to avoid having to go on any cholesterol-lowering medications She has expressed her desire again to avoid taking any prescription or maintenance medications as much as possible Will have patient recheck her labs and fasting lipids in 6 months for follow up (3) Osteoporosis: Code(s): M81.0 - Age-related osteoporosis without current pathological fracture Category: Medical Qualifiers: Osteoporosis type: age-related Presence of current pathological fracture: without current pathological fracture Qualified Code(s): M81.0 - Age-related osteoporosis without current pathological fracture Plan: She is again reminded that her bone density done back in September 2023 revealed (+) osteoporosis, with the lowest T-score value of -3.1 in the femoral neck and total femur - this is patient's baseline exam She was started on Alendronate 70 mg Q week but she admitted that she stopped taking them months ago as she does not want to be on any prescription meds She has also been advised a few times in the past that she should be on oral Vitamin D and Calcium supplements daily but she has also not been compliant with this (4) Smoker: Code(s): F17.200 - Nicotine dependence, unspecified, uncomplicated Category: Social Hx Plan: Patient is counseled again on complete smoking cessation (5) Positive colorectal cancer screening using Cologuard test: Code(s): R19.5 - Other fecal abnormalities Category: Medical Plan: She was seen by GI last year (November 2023) for her positive Cologuard test and was originally scheduled for her colonoscopy in May 2024 but she ended up cancelling it and has not gotten that rescheduled yet Have advised her that with a positive Cologuard, the only way we can determine that she is not at risk for colon cancer (if she does not already have it) is to get an actual colonoscopy done Will refer her back to GI for colonoscopy Plan Follow up in 6 months Orders: Orders Complete Blood Count Auto Diff 6 Months D64.9 - Anemia, unspecified Vitamin D 25-OH Total 6 Months E55.9 - Vitamin D deficiency, unspecified Lipid Panel 6 Months E78.00 - Pure hypercholesterolemia, unspecified Comprehensive [place]. Panel Fast 6 Months E78.00 - Pure hypercholesterolemia, unspecified TSH reflex Free T4 6 Months E78.00 - Pure hypercholesterolemia, unspecified UA CC w/rflx Micro + Cult 6 Months R30.0 - Dysuria Hemoglobin A1c 6 Months R73.01 - Impaired fasting glucose Referrals Gastroenterology Referral R19.5 - Other fecal abnormalities
== END 2025-02-28 10:20 | disposition home or self-care (01) ==
LOC: HO.HMCH 09:38
PROVIDERS: PCP Internal Medicine; Visit Provider Internal Medicine
DX: D05.11 Intraductal carcinoma in situ of right breast (principal); E78.2 Mixed hyperlipidemia; M81.0 Age-related osteoporosis without current pathological fracture; F17.200 Nicotine dependence, unspecified, uncomplicated; R19.5 Other fecal abnormalities

== ENCOUNTER → 2025-02-28 09:37 | Outpatient (BNVA) | payer MEDICARE, SELFPAY | PROVIDERS: PCP Internal Medicine; Visit Provider Internal Medicine | DX: D05.11 Intraductal carcinoma in situ of right breast (principal); E78.2 Mixed hyperlipidemia; M81.0 Age-related osteoporosis without current pathological fracture; F17.210 Nicotine dependence, cigarettes, uncomplicated; R19.5 Other fecal abnormalities | CPT/HCPCS: 96127; 99212 ==

== ENCOUNTER 2025-03-14 08:50 | Outpatient (AMB) | payer MEDICARE, SELFPAY ==
--- NOTE | 2025-03-14 08:55 | MHC.OFFVIS ---
Vital Signs 03/14/25 08:56 Height 5 ft 1 in Weight 133 lb BMI 25.1 BP 128/76 Blood Pressure Location Rt brachial Position Sitting Pulse 76 Pulse Source Pulse Oximeter Pulse Oximetry (%) 97 Oxygen Delivery Method Room Air Intake Visit Reasons: [facility] screening urgent. Breast CA pt. Intake Note: New pt for initial colo screening. Recent lumpectomy. + Cologuard. CC; Pt denies any GI sx or concerns at this time. 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 Breast CA pt.: Details: LAST VISIT: Positive colorectal cancer screening using Cologuard test Plan Patient denies any GI, cardiac or respiratory symptoms.? Positive Cologuard in August Denies any issues with anesthesia in the past.? Denies any history of sleep apnea.? No history infectious diseases in the past or present.? Not on any anticoagulation therapy.? No family or personal history of colon cancer or polyps.? Patient denies melena, hematochezia, unintentional weight loss or ribbon like stools.? Discussed at length the pre-procedure,? prep, diet & medications as well as what to expect prior, during and after the procedure.?? Stressed the importance of good bowel prep.? Recommended the use of Vaseline or Calmoseptine OTC & baby wipes with bowel movements to promote comfort.? ?Patient verbalizes understanding and agrees to plan of care.? She was given the opportunity to ask questions and all questions answered.? We will see her after the procedure.? New bisacodyl (Dulcolax (bisacodyl)) take 4 tabs at noon the day before your colonoscopy 20 mg (4 x 5 mg) PO ONCE 4 tabs 0RF 1 day Z12.11 polyethylene glycol 3350 (Miralax) As directed by gastroenterology department at [facility] 238 grams PO ONCE 238 grams 0RF Z12.11 TODAY'S VISIT: Patient is here today for follow-up and to discuss going for colonoscopy. Patient was seen last summer. Patient was scheduled for colonoscopy in May, however she was not able to go due to the weather Patient reports that nothing changed since last visit except for patient was diagnosed with breast CA and is seeing Oncology. Patient reports that she is not going to have any radiation. Would like to have the procedure done soon. Patient denies any cardiac or respiratory symptoms. Patient denies any GI concerning symptoms. Patient is not on any anticoagulation medication. No issues with anesthesia in the past. [facility] Medical History DCIS (ductal carcinoma in situ) Mixed hyperlipidemia Osteoporosis Breast calcification, right Depression Smoker Pure hypercholesterolemia Surgical History History of lumpectomy of right breast (11/12/24) Hx of tooth extraction Family History Other Family history non-contributory Social History Household Members: None Housing: Condominium Are you a primary primary care md to a significant other at home: No Do you presently have visiting nurse or other home services: No Patient Tobacco Use Status: Current everyday Tobacco user Tobacco use type: Cigarette Cigarette Packs Per Day: 1 e-Cigarette/Vaping Use: Never Used Substance Use Type: Marijuana service: No Current occupational status: retired Cognitive needs: No Hearing needs: No Vision needs: No Review of Systems Const Denies weight gain and Denies weight loss ENT Reports no additional complaints, Denies dysphagia and Denies odynophagia Card Reports no additional complaints Resp Reports no additional complaints GI Denies abdominal pain, Denies belching, Denies melena, Denies bloating, Denies change in bowel habits, Denies dysphagia, Denies excessive flatus, Denies dyspepsia, Denies heartburn, Denies diarrhea, Denies loose stools, Denies nausea, Denies odynophagia and Denies vomiting Reports no additional complaints Musc Reports no additional complaints Neuro Reports no additional complaints Psych Reports no additional complaints Endo Reports no additional complaints Physical Exam Vital Signs: Last Vital Signs Pulse 76 03/14/25 08:56 BP 128/76 03/14/25 08:56 Pulse Ox 97 03/14/25 08:56 Oxygen Delivery Method Room Air 03/14/25 08:56 BMI result Body Mass Index 25.1 Const General: healthy appearing, no acute distress and well developed Nutritional Appearance: well nourished Orientation/consciousness: patient oriented x3 Resp Effort & Inspection: normal respiratory effort, able to speak in complete sentences, no tracheal deviation and symmetric chest movement Auscultation: clear to auscultation bilaterally Cardio Rate: regular rate GI Inspection: Yes normal to inspection and No distended Palpation (GI): Soft to palpation, not firm, nontender and No hepatosplenomegaly present Auscultation: normal bowel sounds General: Yes no CVA tenderness Back/Spine/Pelvis Back: no CVA tenderness Skin General skin exam: elasticity normal, turgor normal and dry skin Neuro General: patient oriented x3 Psych Appearance: grossly normal Mental Status: mental status grossly normal Assessment & Plan Assessment & Plan (1) Colon cancer screening: Code(s): Z12.11 - Encounter for screening for malignant neoplasm of colon Category: Medical Plan Patient denies any GI, cardiac or respiratory symptoms.? Denies any issues with anesthesia in the past.? Denies any history of sleep apnea.? No history infectious diseases in the past or present.? Not on any anticoagulation therapy.? No family or personal history of colon cancer or polyps.? Patient had positive Cologuard last year. Patient denies melena, hematochezia, unintentional weight loss or ribbon like stools.? Discussed at length the pre-procedure,? prep, diet & medications as well as what to expect prior, during and after the procedure.?? Stressed the importance of good bowel prep.? Recommended the use of Vaseline or Calmoseptine OTC & baby wipes with bowel movements to promote comfort.? ?Patient verbalizes understanding and agrees to plan of care.? She was given the opportunity to ask questions and all questions answered.? We will see her after the procedure.? Orders: Referrals GI Procedure Notification Z12.11 - Encounter for screening for malignant neoplasm of colon Medications: New polyethylene glycol 3350 (Miralax) As directed by gastroenterology department at [facility] 238 grams PO ONCE 238 grams 0RF Z12.11 - Encounter for screening for malignant neoplasm of colon bisacodyl (Dulcolax (bisacodyl)) take 4 tabs at noon the day before your colonoscopy 20 mg (4 x 5 mg) PO ONCE 4 tabs 0RF constipation 1 day Z12.11 - Encounter for screening for malignant neoplasm of colon Coding Level of Care Code Est Pt Level 3 (50531) Diagnoses Colon cancer screening Z12.11 Time Spent (min) 30 Comment 20 minutes spent with patient and additional 10 minutes spent reviewing her records
[2025-03-14 08:56] VITALS: BP 128/76; PULSE 76; O2SAT 97; BMI 25.1
== END 2025-03-14 09:18 | disposition home or self-care (01) ==
LOC: HO.HGI 08:51
PROVIDERS: PCP Internal Medicine; Visit Provider Nurse Practitioner Family
DX: Z01.818 Encounter for other preprocedural examination (principal); Z12.11 Encounter for screening for malignant neoplasm of colon; R19.5 Other fecal abnormalities
CPT/HCPCS: 99213

== ENCOUNTER → 2025-03-14 08:50 | Outpatient (BNVA) | payer MEDICARE, SELFPAY | PROVIDERS: PCP Internal Medicine; Visit Provider Nurse Practitioner Family | DX: Z01.818 Encounter for other preprocedural examination (principal) | CPT/HCPCS: 99212 ==

== ENCOUNTER 2025-04-03 11:51 | Day surgery (SDC) | payer MEDICARE, SELFPAY ==
--- NOTE | 2025-04-01 11:55 | HO.ANESPROP2 ---
Documented by User: Mesha Singh NP 04/01/25 11:57 HPI - Anesthesia Eval Consult details Narrative: 74 yr old female for colonoscopy s/p lumpectomy with GA, LMA 4 10/2024 Smoker: tobacco & marjuana High triglycerides: >300 PMFSH Active Problems Active Problems: All Active Problems (Updated 02/28/25 @ 10:47 by Kvng Hampton MD) Left leg injury (Acute) Positive colorectal cancer screening using Cologuard test (Acute) Colon cancer screening (Acute) Osteoporosis screening (Acute) Breast cancer screening by mammogram (Acute) Annual physical exam (Acute) DCIS (ductal carcinoma in situ) (Acute) Mixed hyperlipidemia (Acute) Osteoporosis (Acute) Breast calcification, right (Acute) Smoker (Acute) Pure hypercholesterolemia (Acute) Past Medical History Medical History DCIS (ductal carcinoma in situ) Mixed hyperlipidemia Osteoporosis Breast calcification, right Depression Smoker Pure hypercholesterolemia Family History Family History Other Family history non-contributory Surgical History Surgical History History of lumpectomy of right breast (11/12/24) Hx of tooth extraction History of Problems with Anesthesia: No Social History Social History Household Members: None Housing: Condominium Are you a primary direct care staffer to a significant other at home: No Do you presently have visiting nurse or other home services: No Patient Tobacco Use Status: Current someday Tobacco user Tobacco use type: Cigarette Cigarette Packs Per Day: 1 Cigarettes Per Day: 15 e-Cigarette/Vaping Use: Never Used Substance Use Type: Marijuana Substance Use Frequency: Monthly Are you DNR?: No Advance Directives: No Advance Directives Information Provided: Yes service: No Current occupational status: retired Cognitive needs: No Hearing needs: No Vision needs: No Meds Allergies Allergy/AdvReac Type Severity Reaction Status Date / Time nickel Allergy Mild Rash Verified 03/14/25 08:56 Home Medications ?Medication ?Instructions ?Recorded ?Confirmed ?Last Taken ?Type cholecalciferol (vitamin D3) 25 75 mcg PO DAILY 03/14/25 04/01/25 Unknown History mcg (1,000 unit) capsule multivitamin (Daily Multi-Vitamin 1 tab PO DAILY 03/14/25 04/01/25 Unknown History tablet) Assessment and Plan Final Anesthetic Review History of Problems with Anesthesia: No Documented by User: Betty Schroeder MD 04/03/25 13:35 PMFSH Past Medical History Medical History DCIS (ductal carcinoma in situ) Mixed hyperlipidemia Osteoporosis Breast calcification, right Depression Smoker Pure hypercholesterolemia Family History Family History Other Family history non-contributory Family history of problems with anesthesia: No Surgical History Surgical History History of lumpectomy of right breast (11/12/24) Hx of tooth extraction Social History Social History Household Members: None Housing: Condominium Are you a primary direct care staffer to a significant other at home: No Do you presently have visiting nurse or other home services: No Patient Tobacco Use Status: Current someday Tobacco user Tobacco use type: Cigarette Cigarette Packs Per Day: 1 Cigarettes Per Day: 15 e-Cigarette/Vaping Use: Never Used Substance Use Type: Marijuana Substance Use Frequency: Monthly Are you DNR?: No Advance Directives: No Advance Directives Information Provided: Yes service: No Current occupational status: retired Cognitive needs: No Hearing needs: No Vision needs: No Meds Allergies Allergy/AdvReac Type Severity Reaction Status Date / Time nickel Allergy Mild Rash Verified 03/14/25 08:56 Home Medications ?Medication ?Instructions ?Recorded ?Confirmed ?Last Taken ?Type cholecalciferol (vitamin D3) 25 75 mcg PO DAILY 03/14/25 04/01/25 Unknown History mcg (1,000 unit) capsule multivitamin (Daily Multi-Vitamin 1 tab PO DAILY 03/14/25 04/01/25 Unknown History tablet) Exam Airway Mallampati Class: II TM Dist: >3cm Neck ROM: Limited Heart: rrr Lungs: cta Assessment and Plan Assessment Anesthesia Assessment: Anesthesia Plan Discussed and Chart Reviewed Final Anesthetic Review Family History of Problems with Anesthesia: No NPO: Yes ASA Class: III Final Preanesthetic Review: No Changes in Pt Med Stat, Meds/Allgs Chart Reviewed, Consent Obtained/Reviewed and Anes Risks/Benef Reviewed Patient Risk: Intermediate Procedure Risk: Low Anesthetic Plan Anesthetic Plan: MAC: and Agree w/ Assess. and Plan Disposition: Standard PACU
[2025-04-01 13:25] VITALS: BMI 25.1
[2025-04-03 13:06] VITALS: BMI 25.6
--- NOTE | 2025-04-03 13:07 | P.HPSUR_ITS ---
Pre-Procedural Eval Section A - 24 Hr Update-Section A only Date of Service: 04/03/25 Section B - Complete if H&P > 30 days Chief Complaint: screening Details of Present Illness: DCIS (ductal carcinoma in situ) Mixed hyperlipidemia Osteoporosis Breast calcification, right Depression Smoker Pure hypercholesterolemia Surgical History History of lumpectomy of right breast (11/12/24) Hx of tooth extraction Present Medications: see Short Stay Collaborative assessment Allergies: Allergies Allergy/AdvReac Type Severity Reaction Status Date / Time nickel Allergy Mild Rash Verified 03/14/25 08:56 Review of Systems Review of Systems Comment: Ten point ROS negative Exam Exam Comment: Gen appear: No acute distress HEENT: no icterus Chest: No overt resp distress Abd: soft, nontender, nondistended Psych: Stable affect, answering questions appropriately Neuro: A/Ox3 noted to move all extremities spontaneously Ext: no peripheral edema Plan Diagnosis/Plan: Unchanged I have reviewed the history and physical and performed a pertinent physical examination on my patient. No changes have occurred unless specified. Time Spent With Patient Time: Total time managing care of this patient today ____ minutes.
[2025-04-03 13:18] VITALS: BP 123/75; PULSE 85; RESP 18; TEMP 37.2; O2SAT 97
[2025-04-03 14:32] VITALS: BP 141/79; PULSE 78; RESP 14; TEMP 36.4; O2SAT 98
--- NOTE | 2025-04-03 14:37 | P.OPN-COLO_ITS ---
Colonoscopy Operative Note Operative Note Date of Service: 04/03/25 Narrative: Procedure: Colonoscopy Indication: Positive cologuard Endoscopist: Joanne Jean MD Anesthesia Provider: Jud Almaraz CRNA Anesthesia type: MAC Instrument: Olympus [id number]-[id number] Consent: Indication, risks vs benefits, and alternatives were discussed with the patient who gave written informed consent to proceed. EKG, pulse, pulse oximetry and blood pressure were monitored throughout the procedure. Please see anesthesia flowsheet. Procedure: The patient was brought to the procedure room and placed in the left lateral decubitus position. IV medications were administered by the anesthesia provider in attendance. A digital rectal exam was performed which was normal. A distal attachment cap was affixed to the tip of the colonoscope which was then inserted through the anus and advanced through the colon to the cecum at 75 cm,and terminal ileum. Appendiceal orifice and ileocecal valve were identified. Mucosa was carefully examined under high definition white light as the instrument was slowly withdrawn in a retrograde panoramic fashion. Retroflexion was performed in rectum. The procedure was not difficult. There were no immediate obvious complications. The quality of the prep was BBPS: 3+2+3 = adequate Withdrawal time 15 minutes. Limitations: No limitations. Findings: Mucosa: Normal to cecum and terminal ileum. Protruding lesions: * 1 sessile polyp of size 5 mm in transverse colon. Cold snare polypectomy was performed. The polyp was completely removed and retrieved. * 3 sessile polyp of size 2-8 mm in sigmoid colon. Cold snare polypectomy was performed. The polyps were completely removed and retrieved. * Medium internal hemorrhoids without stigmata of recent bleeding. Excavated lesions: * Large diverticulosis of left sided colon. Impression: 1. Normal colon mucosa 2. 4 polyps removed 3. Diverticulosis 4. Internal hemorrhoids Recommendations: - Follow path results. - Repeat colonoscopy in 3-5 years if all 3 or more polyps are adenomas, otherwise routine colonoscopy not recommended due to age.
[2025-04-03 14:45] VITALS: BP 142/80; PULSE 78; RESP 16; TEMP 36.4; O2SAT 98
== END 2025-04-03 15:08 | disposition home or self-care (01) ==
PROVIDERS: PCP Internal Medicine; Visit Provider Internal Medicine
PROC: 0DJD8ZZ Inspection of Lower Intestinal Tract, Via Natural or Artificial Opening Endoscopic (ICD-10-PCS; CPT 45378; principal; 2025-04-03 13:50)
DX: Z12.11 Encounter for screening for malignant neoplasm of colon (principal); R19.5 Other fecal abnormalities; K64.8 Other hemorrhoids; K57.30 Diverticulosis of large intestine without perforation or abscess without bleeding; D12.3 Benign neoplasm of transverse colon; K63.5 Polyp of colon
CPT/HCPCS: 45385; 88305; J2250; J2704

== ENCOUNTER → 2025-04-03 11:51 | Outpatient (BNV) | payer MEDICARE, SELFPAY | PROVIDERS: PCP Internal Medicine; Visit Provider Internal Medicine | DX: Z12.11 Encounter for screening for malignant neoplasm of colon (principal); R19.5 Other fecal abnormalities; K63.5 Polyp of colon; K57.90 Diverticulosis of intestine, part unspecified, without perforation or abscess without bleeding; K64.8 Other hemorrhoids | CPT/HCPCS: 45385 ==